=== PATIENT | female | born 1960 | race Caucasian/White ===

== ENCOUNTER 2021-10-30 18:34 | Emergency (ER) | payer OTHER, SELFPAY ==
--- NOTE | 2021-10-30 18:59 | ED.EYEPROB ---
HPI - Eye Problem General Chief complaint: Eye Problems Stated complaint: something in eye Time Seen by Provider: 10/30/21 18:59 Source: patient Mode of arrival: ambulatory Limitations: no limitations History of Present Illness HPI Narrative: this is a 61-year-old female that presents with right eye irritation and sensation of a foreign body that started earlier this morning there is some redness in the conjunctiva with some tearing no visual changes no altered visual acuity patient does not wear contacts. chief complaint: eye pain, eye redness and foreign body Onset (ago): hour(s) Onset description: sudden Duration: constant Location: right eye Eye Symptoms: redness and foreign body sensation Place: home Mechanism: none Severity: mild Related Data Home Medications Medication Instructions Recorded Confirmed albuterol sulfate 90 mcg INHALATION PRN 10/30/21 10/30/21 levothyroxine 200 mcg PO DAILY 10/30/21 10/30/21 Allergies Allergy/AdvReac Type Severity Reaction Status Date / Time No Known Allergies Allergy Verified 10/30/21 19:02 Review of Systems Review of Systems: All systems reviewed & are unremarkable except as noted in HPI and below PMFSH Past Medical History Medical History Patient denies medical problems Exam Const: General: no acute distress Orientation/consciousness: patient oriented x3 HENMT: Head: normal to inspection Other: right conjunctival injection Eyes: Conjunctivae: conjunctival abnormality Direct Ophthalmoscopy: no photophobia Neck: Neck: normal visual inspection and no lymphadenopathy Chest: Chest palpation & inspection: normal inspection of the chest Resp: Effort & Inspection: normal respiratory effort Auscultation: clear to auscultation bilaterally Cardio: Rate: regular rate Rhythm: regular rhythm GI: Auscultation: normal bowel sounds Urinary Catheter: Urinary Catheter: patent and draining Back/Spine/Pelvis: Back: no CVA tenderness Skin: General skin exam: normal color Rashes: no rashes Neuro: General: patient oriented x3 Extrem: General: normal to inspection and no pedal edema Psych: Mental Status: mental status grossly normal Course Course Emergency Course: right eye was irrigated and cotton swab was used to remove any foreign object that the patient felt was in her right eye there is no evidence of any foreign objects the patient does have a red injected right conjunctiva with tearing and foreign body sensation, fluorescein stain was applied and there was no corneal abrasions. Antibiotic eye drop was instilled into the right eye. Critical Care Time Critical Care Time Critical Care Time: No Discharge Plan Discharge Clinical Impression: Bacterial conjunctivitis Patient Disposition: Home, Self-Care Condition: Stable Instructions: Antibiotic Form, Conjunctivitis (ED) Additional Instructions: take medicine as prescribed and follow-up with primary care physician/ public health technologist if symptoms persist or worsen. Prescriptions: New neomycin-polymyxin B-dexameth [Maxitrol] 3.5mg/mL-10,000 unit/mL-0.1 % drops,suspension 1 drp RIGHT EYE Q6H 7 Days Qty: 5 RF: 0 No Action levothyroxine 200 mcg tablet 200 mcg PO DAILY RF: 0 albuterol sulfate 90 mcg/actuation HFA aerosol inhaler 90 mcg INHALATION PRN RF: 0 Follow-up/Referrals: Delphos,Farrah Puente MD [Primary Care Provider] - Time of Disposition: 19:05
[2021-10-30 19:05] VITALS: BP 157/110; PULSE 70; RESP 16; TEMP 35.8; O2SAT 97
[2021-10-30] MEDS: TETRACAINE HCL 0.5% OPHTH SOLN 4 ML BTL 1 DROP (19:09)
[2021-10-30] MEDS: DACRIOSE EYE IRRIGATION 118 ML BOTTLE (19:09)
[2021-10-30] MEDS: FLUORESCEIN SOD 1 MG/STRIP (19:09)
[2021-10-30] MEDS: NEOMYCIN/POLYMYXIN/HYDROCORT 7.5 ML EYE DROPS (*BKC) 1 DROP EACH EYE (19:35)
[2021-10-30 19:42] VITALS: BP 157/101; PULSE 96; RESP 17; TEMP 36.6; O2SAT 98
== END 2021-10-30 19:44 | disposition home or self-care (01) ==
PROVIDERS: Emergency Provider Emergency Medicine; PCP Internal Medicine
DX: H10.89 Other conjunctivitis (principal)
CPT/HCPCS: 99283; A9270

== ENCOUNTER 2023-11-24 01:17 | Emergency (ER) | payer OTHER, SELFPAY ==
--- NOTE | 2023-11-24 01:23 | ED.DIZZY ---
HPI - Dizziness General Chief Complaint: Dizziness Stated Complaint: Dizziness Time Seen by Provider: 11/24/23 01:21 Source: patient Mode of arrival: ambulatory History of Present Illness HPI Narrative: Patient is a 63 year old female with a significant Past medical history presents today with dizziness, nausea, vomiting. Please see present home his signficant she woke up she had disease in vomited and got very nauseous. She states she does have a history of this in the past. She has history of vertigo. She also states that her primary care physician has cut down her Synthroid by about half in the last month. She states that she feels little bit more dizzy in this time frame. She says she is dehydrated though only drink 1 bottle water today. MD elicited complaint: dizziness and vertigo Pertinent past history: BPPV Onset (ago): hour(s) Timing: sudden onset Severity: mild Description: room spinning and lightheadedness History of similar symptoms: Yes Exacerbating factors: nothing Relieving factors: nothing Associated symptoms: denies other symptoms Related Data Home Medications Medication Instructions Recorded Confirmed albuterol sulfate 90 mcg/actuation 90 mcg inhalation PRN 10/30/21 11/24/23 aerosol inhaler levothyroxine 200 mcg tablet 200 mcg PO DAILY 10/30/21 11/24/23 Allergies Allergy/AdvReac Type Severity Reaction Status Date / Time erythromycin base Allergy Unknown Verified 11/24/23 01:33 Penicillins Allergy Unknown Verified 11/24/23 01:33 Review of Systems Review of Systems: All systems reviewed & are unremarkable except as noted in HPI and below Constitutional: Constitutional: Reports as per HPI Eyes: Eyes: Reports no additional eye complaints ENT: Reports system reviewed and no additional complaints, except as documented Cardiovascular: Cardiovascular: Reports no additional cardiovascular complaints Respiratory: Respiratory: Reports no additional respiratory complaints Gastrointestinal: Gastrointestinal: Reports as per HPI, Reports nausea and Reports vomiting Genitourinary: Genitourinary: Reports no additional female genitourinary complaints Musculoskeletal: Musculoskeletal: Reports no additional musculoskeletal complaints Integumentary/Breasts: Skin/Breast: Reports system reviewed and no additional complaints, except as docu Neurologic: Reports system reviewed and no additional complaints, except as documented Psychiatric: Psychiatric: Reports no additional psychiatric complaints Endocrine: Endocrine: Reports no additional endocrine complaints Hematologic/Lymphatic: Hematologic/Lymphatic: Reports no additional hematologic/lymphatic complaints Allergic/Immunologic: Allergic/Immunologic: Reports no additional allergic/immunologic complaints PMFSH Past Medical History Medical History Patient denies medical problems Exam Const: General: healthy appearing Nutritional Appearance: well nourished Orientation/consciousness: patient oriented x3 HENMT: Head: normal to inspection Ears: TM's normal bilaterally Face/Nose/Sinus: Normal external nose present Face and sinus: normal facial exam Mouth: Yes Normal oral and palatal mucosa present Eyes: Conjunctivae: conjunctivae normal Pupils: Equal, round and reactive pupils present Neck: Neck: normal visual inspection Chest: Chest palpation & inspection: normal inspection of the chest Resp: Effort & Inspection: normal respiratory effort Auscultation: clear to auscultation bilaterally Cardio: Rate: regular rate Rhythm: regular rhythm GI: GI Palp: Yes Soft to palpation Back/Spine/Pelvis: Back: no CVA tenderness Skin: General skin exam: normal color Rashes: no rashes Wounds: no wounds Neuro: General: patient oriented x3 Cranial nerves: Yes Nystagmus not present Speech: normal speech Extrem: General: normal to inspection Psych: Mental Status: mental status grossl
[2023-11-24 01:30] VITALS: BP 153/76; PULSE 66; RESP 20; TEMP 37; O2SAT 95
[2023-11-24] MEDS: SODIUM CHLORIDE 0.9% IV 1,000 ML 999 ML IV CONT (01:39)
[2023-11-24] MEDS: MECLIZINE HCL 25 MG TABLET PO (01:39)
[2023-11-24] MEDS: ONDANSETRON INJ 4 MG/2 ML VIAL IV PUSH (01:39)
[2023-11-24 01:57] LABS: Basophils Absolute Auto 0.05 K/mm3 (0.00-0.10); Basophils Percent Auto 0.8 % (0.0-1.0); Eosinophils Absolute Auto 0.19 K/mm3 (0.02-0.50); Hematocrit 39.5 % (35.0-49.0); Hemoglobin 12.8 g/dL (12.0-15.0); Immature Granulocyte Absolute 0.02 K/mm3 (0.00-0.00); Immature Granulocyte Percent A 0.3 % (0.0-0.0); Lymphocytes Absolute Auto 1.09 K/mm3 (1.10-4.50); Lymphocytes Percent Auto 17.4 % (18.0-42.0); Mean Corpuscular HGB Conc 32.4 g/dL (32-36); Mean Corpuscular Hemoglobin 28.4 pg (27.0-31.0); Mean Corpuscular Volume 87.8 fL (78.0-102.0); Mean Platelet Volume 9.1 fl (9.2-11.8); Neutrophils Percent Auto 70.5 % (50.0-70.0); Platelet Count Result 238 K/mm3 (150-420); Red Cell Distribution Width 13.6 % (11.6-14.4); White Blood Count 6.3 K/mm3 (4.8-10.8)
[2023-11-24 01:59] LABS: Bilirubin Urine Negative (Negative); Blood Urine Negative (Negative); Color Urine Light Yellow (Yellow); Glucose Urine UA Negative (Negative); Ketones Urine Negative (Negative); Leukocyte Esterase Ur Negative (Negative); Nitrate Urine Negative (Negative); Protein Urine Negative (Negative); Urobilinogen Urine 0.2 mg/dL (0.2-1.0); pH Urine 7.5 (5.0-8.0)
[2023-11-24 02:03] LABS: Add Urine Microscopic? NO; Appearance Urine Cloudy (Clear)
[2023-11-24 02:12] LABS: Alanine Aminotransferase 19 U/L (14-59); Albumin Level 3.3 g/dL (3.4-5.0); Alkaline Phosphatase 80 U/L (46-116); Anion Gap 11 mmol/L (8-16); Aspartate Amino Transferase 15 U/L (15-37); Bilirubin,Total 0.3 mg/dL (0.00-1.00); Blood Urea Nitrogen 17 mg/dL (7-18); Calcium 8.8 mg/dL (8.5-10.1); Carbon Dioxide 27 mmol/L (21-32); Chloride 107 mmol/L (98-108); Estimated CRCL calculation 79 ml/min; Estimated Glomerular Filt Rate > 60; Glucose 98 mg/dL (70-99); Osmolality Calculated 301 mOsm/kg (285-295); Potassium 3.2 mmol/L (3.5-5.1); Sodium 145 mmol/L (136-145); Total Protein 6.1 g/dL (6.4-8.2)
[2023-11-24] MEDS: POTASSIUM CHLORIDE 20 MEQ ER TABLET 40 MEQ PO (03:23)
[2023-11-24 03:34] VITALS: BP 139/75; PULSE 85; RESP 20; TEMP 37.1; O2SAT 98
== END 2023-11-24 03:34 | disposition home or self-care (01) ==
PROVIDERS: Emergency Provider Family Medicine; PCP Internal Medicine
DX: H81.10 Benign paroxysmal vertigo, unspecified ear (principal); R11.2 Nausea with vomiting, unspecified
CPT/HCPCS: 36415; 80053; 81003; 85025; 96361; 96374; 99284; A9270; J2405; J7030

== ENCOUNTER 2025-01-12 18:25 | Emergency (ER) | payer OTHER, SELFPAY ==
[2025-01-12 18:26] VITALS: BP 149/88; PULSE 78; RESP 16; TEMP 36.6; O2SAT 98
--- NOTE | 2025-01-12 18:27 | ED.UPPEXIN ---
HPI - Extremity Injury (Upper) General Chief Complaint: Extremity Injury, Upper Stated Complaint: left hand pain Time Seen by Provider: 01/12/25 18:26 Source: patient Mode of arrival: ambulatory Limitations: no limitations History of Present Illness HPI narrative: Patient is a 64-year-old female with a left hand irritation and pain with redness for the past day. She had no injury. No history of gout. Many allergies to medications. MD complaint: injury to: left and hand Onset (ago): day(s) ( One) Other injuries: none Place: home Severity: moderate Severity scale (1-10): 4 Relieving factors: none Exacerbating factors: movement of extremity Context: other ( no injury) Associated symptoms: denies other symptoms Treatments prior to arrival: other ( none) Related Data Home Medications ?Medication ?Instructions ?Recorded ?Confirmed ?Last Taken ?Type albuterol sulfate 90 mcg/actuation 90 mcg inhalation PRN 10/30/21 11/24/23 Unknown History aerosol inhaler levothyroxine 200 mcg tablet 200 mcg PO DAILY 10/30/21 11/24/23 Unknown History Allergies Allergy/AdvReac Type Severity Reaction Status Date / Time Cephalosporins Allergy Mild Unknown Verified 01/12/25 18:30 ibuprofen (From Motrin) Allergy Mild Unknown Verified 01/12/25 18:30 lamotrigine Allergy Mild Unknown Verified 01/12/25 18:30 methylprednisolone Allergy Mild Unknown Verified 01/12/25 18:30 nitrofurantoin (From Allergy Mild Unknown Verified 01/12/25 18:30 Macrobid) pseudoephedrine Allergy Mild Unknown Verified 01/12/25 18:30 Quinolones Allergy Mild Unknown Verified 01/12/25 18:30 Sulfa (Sulfonamide Allergy Mild Unknown Verified 01/12/25 18:30 Antibiotics) erythromycin base Allergy Unknown Verified 01/12/25 18:30 Penicillins Allergy Unknown Verified 01/12/25 18:30 Review of Systems Review of Systems: All systems reviewed & are unremarkable except as noted in HPI and below Constitutional: Constitutional: Reports no additional constitutional complaints Eyes: Eyes: Reports no additional eye complaints ENT: Reports system reviewed and no additional complaints, except as documented Cardiovascular: Cardiovascular: Reports no additional cardiovascular complaints Respiratory: Respiratory: Reports no additional respiratory complaints Gastrointestinal: Gastrointestinal: Reports no additional gastrointestinal complaints Genitourinary: Genitourinary: Reports no additional female genitourinary complaints Musculoskeletal: Musculoskeletal: Reports no additional musculoskeletal complaints Integumentary/Breasts: Skin/Breast: Reports system reviewed and no additional complaints, except as docu Neurologic: Reports system reviewed and no additional complaints, except as documented Psychiatric: Psychiatric: Reports no additional psychiatric complaints Endocrine: Endocrine: Reports no additional endocrine complaints Hematologic/Lymphatic: Hematologic/Lymphatic: Reports no additional hematologic/lymphatic complaints Allergic/Immunologic: Allergic/Immunologic: Reports no additional allergic/immunologic complaints PMFSH Past Medical History Medical History Patient denies medical problems Exam Const: General: healthy appearing Nutritional Appearance: well nourished Orientation/consciousness: patient oriented x3 HENMT: Head: normal to inspection Ears: external ears normal Face/Nose/Sinus: Normal external nose present Eyes: Conjunctivae: conjunctivae normal Pupils: Equal, round and reactive pupils present EOM: EOMs intact bilaterally Neck: Neck: normal visual inspection Chest: Chest palpation & inspection: normal inspection of the chest Resp: Effort & Inspection: normal respiratory effort and not labored Auscultation: clear to auscultation bilaterally and no crackles Cardio: Rate: regular rate Rhythm: regular rhythm Heart sounds: no murmurs GI: Inspection: non-distended GI Palp: Yes Soft to palpation and No Tenderness to palpation present (GI) Auscultation: normal bowel sounds : General: Yes bladder normal to palpation Back/Spine/Pelvis: Back: no CVA tenderness Skin: General skin exam: normal color Rashes: rash noted Wounds: no wounds Other: left hand extensor surface has erythema and tenderness throughout the entire hand but more so on the pointer finger MCP joint; this is not a circumferential erythema Neuro: General: patient oriented x3 Cranial nerves: Yes Nystagmus not present Speech: normal speech Extrem: General: abnormal to inspection Other: see skin exam Psych: Mental Status: mental status grossly normal Affect: normal affect Attitude: cooperative MDM - Extremity Injury (Upper) MDM Narrative Medical decision making narrative: patient is a 64-year-old female with left hand extensor surface erythema with pain which appears to be gout and/or cellulitis. Will treat both accordingly. No injury so no x-ray needed at this time. Discharge Plan Discharge Clinical Impression: Cellulitis Qualifiers: Site of cellulitis: extremity Site of cellulitis of extremity: upper extremity Laterality: left Qualified Code(s): L03.114 - Cellulitis of left upper limb Gout Qualifiers: Gout site: hand Gout etiology: unspecified cause Chronicity: acute Laterality: left Qualified Code(s): M10.9 - Gout, unspecified Patient Disposition: Home Condition: Stable Instructions: Antibiotic Form, Cellulitis (ED), Gout (ED) Patient Language: Moldovan Prescriptions: New colchicine 0.6 mg capsule 0.6 mg PO DAILY 7 Days Qty: 7 0RF clindamycin HCl [Cleocin HCl] 300 mg capsule 300 mg PO TID 7 Days Qty: 21 0RF No Action levothyroxine 200 mcg tablet 200 mcg PO DAILY albuterol sulfate 90 mcg/actuation HFA aerosol inhaler 90 mcg INHALATION PRN meclizine 25 mg tablet 25 mg PO BID PRN (Reason: dizziness) Qty: 20 0RF ondansetron 4 mg tablet,disintegrating 4 mg PO Q8H PRN (Reason: nausea and vomiting) Qty: 20 0RF Follow-up/Referrals: UNKNOWN,DOCTOR [Primary Care Provider] - Time of Disposition: 18:48
--- OUTSIDE RECORDS SUMMARY | 2025-01-12 18:27 | XMS_ITS ---
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 Pain, swelling, redness and abrasions to anterior knee. Duration: today TECHNIQUE: 3 radiographic view(s) of the left knee . COMPARISON: 01/18/2020 FINDINGS: BONES/JOINTS: There is no acute fracture, malalignment or osseous abnormality. The joint spaces are normal. The bones are somewhat osteopenic. SOFT TISSUES: Within normal limits. IMPRESSION: No acute osseous abnormality. THIS IS AN ELECTRONICALLY VERIFIED FINAL REPORT 01/16/2024 7:13 PM - Electronically signed by Heri Pillai M.D. KH: PARTHA Report ID: [id number] Reading Location: [place] [id number] Social History Type Status Start Date End Date Code Code Syst em Smoking History Current every day smoker [id number] SNOMED CT Smoking History Unknown if ever smoked [id number] Sex Female Hospital Discharge Instructions Should you have any questions prior to discharge, please contact a member of your healthcare team. If you have left the hospital and have any questions, please contact your primary care physician. Reason For Referral No Data Found Plan of Treatment MRI Abdomen WWO Contrast ([id number]) 2024 Encounters Encounter Diagnosis Start Date Code Code Sys tem Contusion of left knee, initial encounter 01/16/2024 SNOMED-CT Personal Care Team Section Performer Name Performer Role Active Date Inactive Da yash PHAN Imaging Narrative Notes
--- OUTSIDE RECORDS SUMMARY | 2025-01-12 18:27 | XMS_ITS | Data Portability ---
Author Organization [facility], [address] [facility] Neurology ([place]) Address [address] [place] [address] Care Team Providers Care Forms Builder Name Role Phone FARRAH PHAN Primary Care Provider [phone] Assessment Encounter Date Assessment Date Assessment LastModified by Organization Details LastModified Time 04/13/2024 04/13/2024 1. She has a his tory of hypothyroidism and poor compliance with medication. We will check her thyroid levels today to see if this is contributing to her symptoms of insomnia and tremors. 2. She has vitamin D deficiency. Will check her level today. This could contribute to her fatigue. She does not go outside or sit in the sun at all. 3. Rash. I think this might be just due to very dry skin and lack of bathing. I recommend that she take a shower on her regular basis and then use an oil or Vaseline on her skin after she gets out of the bathtub. She is going to try this and helps. 4. Very fine tremors. Again we will check labs to see if there is any electrolyte abnormalities or thyroid abnormality is contributing to this 5. She has been a lifelong smoker we will make sure that she has a CTs every year for lung cancer screening. When I talked to her about this, she declines this. I have asked her to think about it before she absolutely says no. She will return in 3 months for follow-up. She will be due for laboratory follow-up and at the end of April. She agrees with this plan. 30 minutes [email or web address] Not available 04/15/2024 21:15:03 06/01/2024 06/01/2024 Discussed otitis media and bronchitis with the patient. She has done well with Z-Steve in the past. We talked about using some steroids for the chest. She has intolerance to methylprednisolone as it made her dizzy. She has been on prednisone before but does not remember if it caused any problems. With her using the inhaler and only getting short-term benefit I think steroid would be helpful. We could start a low-dose and see if she tolerates the medication. If it causes dizziness she can discontinue it immediately. She stay away from the jgqi-gwk-cvxkbrc oral cold medications. If she wants to use something help with the congestion in the sinus that she could use topical decongestant such as Afrin or Jeb-Synephrine. She can also use saline nasal spray which is a mild decongestant. If she does not see improvement over the next 5 days she should be reevaluated. We discussed worsening of symptoms and need to follow-up immediately if that occurs. Discussed with the patient they will be notified of results by patient portal or by mail. They will be notified of results by phone, only if results require immediate attention. Patient verbalizes understanding and agreement with the treatment plan. Patient will continue to follow-up for acute health issues and routine medication checks. [email or web address] Not available 06/01/2024 15:58:29 07/13/2024 07/13/2024 I ordered CBC ur ic acid and vitamin B12 for evaluation of right foot pain. We discussed that if the pain continues and this does not give us answer the neck step would be doing an x-ray on the foot. We will let her know the results of the test when it becomes available. Going to recheck her thyroid level today. I ordered TSH and that should be available next couple days. We will let her know that result and if any further changes in her medication are necessary. If she has worsening of symptoms I would like her to get back in immediately. If were not open she should go to the emergency room. Discussed with the patient they will be notified of results by patient portal or by mail. They will be notified of results by phone, only if results require immediate attention. Patient verbalizes understanding and agreement with the treatment plan. Patient will continue to follow-up for acute health issues and routine medication checks. [email or web address] Not available 07/13/2024 16:36:33 09/21/2024 09/21/2024 1. COPD and ongo ing tobacco use. We talked about smoking cessation. She has already cut back quite a bit. She is only smoking outside. I explained that this would affect her sinuses her ears her cough and she understands. 2. Her essential tremor is not evident today. She says she has been taking her thyroid medicine and I think this is a contributing factor. 3. Hypothyroidism. She has been taking her medication appropriately. It is evident and that her skin looks better, she has a less than doughy phase, and her weight is maintained. Will continue to monitor. 4. She is due for Pap smear. She wants to postpone it until warmer weather. She has 3 layers of clothing on today because of the cold. 5. She has not had a colonoscopy. We will send a Cologuard test to her home to see if she will do this. I will see her back in 6 months at which time she will be due for full physical laboratory testing. She declines immunizations. We have tried to get her on Fosamax for her osteoporosis but she is not willing to do that. Will talk with her again in the summer. She knows to call with any concerns. Total time 30 minutes. She agrees with this plan [email or web address] Not available 09/22/2024 11:40:10 11/25/2024 11/25/2024 1. Blood pressur e was elevated. I recommend that she monitor her blood pressure by getting it at home monitor. If it stays elevated over 140/90 consistently she should make follow-up appointment. If she is unable to followed at home she should make follow-up appointment for a couple weeks to make sure that the numbers come down after her illness. 2. For the sinobronchitis I placed her on Z-Steve. She had multiple allergies but has no issues with Z-Steve. We discussed risk first benefits and possible side effects medication. Also sent in refill of fluticasone for her. I will take the Astelin off of her medication list. 3. Ordered x-ray on her foot. She has MRI scheduled for Saturday for a follow-up. She can get the x-ray done at the same time. If the foot pain is gone she does not need to do the x-ray. If it gets worse sooner she can go over and get the x-ray done sooner. In the meantime I did recommend the use of the ibuprofen as necessary. We talked about stretching and using ice massage on the area. We talked about this being possible heel spur or plantar fasciitis. She should make sure to wear shoes at all times besides being in bed. [email or web address] Not available 11/25/2024 10:16:20 Plan of Treatment Reminders Order Date Submit Date Provider Last Modified By Organization Details Last Modified Time Details Appointments Establis [facility] Patient 30.EST 2024 09:00A M Dr. Farrah Coley Not available Not available Not available Lab CBC w/ auto diff 2023 [facility] - [facility], [address] [place] [address], [id number], 07/14/2024 18:57:28 vitamin B12, serum 2023 024 [facility], [address] [place] [address], [id number], 07/14/2024 19:24:53 uric acid, serum or plasma 2023 024 [facility], [address] [place] [address], [id number], 07/14/2024 19:08:38 TSH, ultra-se nsitive, serum 2023 024 [facility], [address] [place] [address], [id number], 07/14/2024 19:22:43 vitamin D, 25-hydro xy, total, serum 2023 024 [facility], [address] [place] [address], [id number], 04/27/2024 18:47:47 TSH, serum or plasma 2023 024 [facility], [address] [place] [address], [id number], 04/27/2024 18:47:45 Referral None recorded . Procedures None recorded . Surgeries None recorded . Imaging XR, foot, 3 or more view 2024 025 [email or web address] [facility] - Radiology Scheduling, [address] [place], [address], 11/30/2024 15:17:15 Medication Orders azithrom ycin 250 mg tablet 2024 [facility] [address], [facility] [place], [address], 11/25/2024 09:58:40 fluticas one propiona te 50 mcg/actu ation nasal spray,montano spension 2024 025 [facility] [address], [facility] [place], [address], 11/25/2024 09:58:41 predniso ne 20 mg tablet 2023 024 [facility] [address], [facility] [place], [address], 07/13/2024 16:32:38 azithrom ycin 250 mg tablet 2023 024 [facility] [address], [facility] [place], [address], 07/13/2024 16:32:30 Patient TargetsNo targets recorded. Patient InstructionsNo instructions recorded. Reason for Referral None Reported. Results Created Date Observation Date Name Description Value Unit Range Abnormal Flag Note LastModifiedBy Organization Detail LastModifiedTime 03/17/20 24 03/17/2024 TSH, ultra -sens itive , serum TSH3 0.129 uIU/m L .340-5 .600 low Not Available [facility] [address] [place] [address], [id number], 03/17/2024 18:54:47 04/27/20 24 04/27/2024 TSH, serum or plasm a TSH; reflex to free T4 Not Available [facility] [address] [place] [address], [id number], 04/27/2024 18:47:45 04/27/20 24 04/27/2024 TSH, serum or plasm a TSH3 0.204 uIU/m L .340-5 .600 low FT4 refle x indic ated, resul ts to follo w. Not Available [facility] [address] [place] [address], [id number], 04/27/2024 18:47:45 04/27/20 24 04/27/2024 vitam in D, 25-hy droxy , total , serum vitamin D 25-hydroxy totl 36.0 NG/mL 30.0-8 0.0 Less than 20 ng/mL Defic iency 20-29 ng/mL Insuf ficie ncy 30-80 ng/mL Optim al Great er than 80 ng/mL Possi ble toxic ity Not Available [facility] [address] [place] [address], [id number], 04/27/2024 18:47:47 04/27/20 24 04/27/2024 T4, free, serum free T4 1.55 NG/dL 0.58-1 .64 Speci mens that conta in high level s of bioti n may cause false ly high Free T4 resul ts. Not Available [facility] [address] [place] [address], [id number], 04/27/2024 19:07:02 07/13/20 24 07/14/2024 CBC w/ auto diff CBC with differential Not Available [facility] [address] [place] [address], [id number], 07/14/2024 18:57:28 07/13/20 24 07/14/2024 CBC w/ auto diff WBC 6.1 K/uL 3.8-11 .2 Not Available [facility] [address] [place] [address], [id number], 07/14/2024 18:57:28 07/13/20 24 07/14/2024 CBC w/ auto diff RBC 4.84 M/uL 3.92-5 .10 Not Available [facility] [address] [place] [address], [id number], 07/14/2024 18:57:28 07/13/20 24 07/14/2024 CBC w/ auto diff HGB 14.3 g/dL 11.8-1 5.3 Not Available [facility] [address] [place] [address], [id number], 07/14/2024 18:57:28 07/13/20 24 07/14/2024 CBC w/ auto diff HCT 42.9 % 36.5-4 4.8 Not Available [facility] [address] [place] [address], 67[address], 07/14/2024 18:57:28 07/13/20 24 07/14/2024 CBC w/ auto diff MCV 88.6 fL 80.0-9 9.0 Not Available [facility] [address] [place] [address], [id number], 07/14/2024 18:57:28 07/13/20 24 07/14/2024 CBC w/ auto diff MCH 29.5 pg 25.5-3 3.6 Not Available [facility] [address] [place] [address], [id number], 07/14/2024 18:57:28 07/13/20 24 07/14/2024 CBC w/ auto diff MCHC 33.3 g/dL 32.0-3 6.0 Not Available [facility] [address] [place] [address], [id number], 07/14/2024 18:57:28 07/13/2007/14/2024 CBC w/ auto diff RDW-SD 46.6 fL 35.1 - 46.3 high Not Available [facility] [address] [place] [address], [id number], 07/14/2024 18:57:28 07/13/20 24 07/14/2024 CBC w/ auto diff plt 295 K/uL 130-40 0 Not Available [facility] [address] [place] [address], [id number], 07/14/2024 18:57:28 07/13/20 24 07/14/2024 CBC w/ auto diff MPV 9.7 fL 9.3-12 .8 Not Available [facility] [address] [place] [address], [id number], 07/14/2024 18:57:28 07/13/20 24 07/14/2024 CBC w/ auto diff tracee% 63.1 % not estab Not Available [facility] [address] [place] [address], 6[address], 07/14/2024 18:57:28 07/13/20 24 07/14/2024 CBC w/ auto diff lym% 25.2 % not estab Not Available [facility] [address] [place] [address], [id number], 07/14/2024 18:57:28 07/13/20 24 07/14/2024 CBC w/ auto diff mono% 8.7 % not estab Not Available [facility] [address] [place] [address], [id number], 07/14/2024 18:57:28 07/13/20 24 07/14/2024 CBC w/ auto diff eos% 1.6 % not estab Not Available [facility] [address] [place] [address], 639[address], 07/14/2024 18:57:28 07/13/20 24 07/14/2024 CBC w/ auto diff baso% 1.2 % not estab Not Available [facility] [address] [place] [address], [id number], 07/14/2024 18:57:28 07/13/20 24 07/14/2024 CBC w/ auto diff abs tracee 3.8 K/uL 1.8-7. 5 Not Available [facility] [address] [place] [address], [id number], 07/14/2024 18:57:28 07/13/20 24 07/14/2024 CBC w/ auto diff abs lym 1.5 K/uL 1.1-3. 3 Not Available [facility] [address] [place] [address], 62[address], 07/14/2024 18:57:28 07/13/20 24 07/14/2024 CBC w/ auto diff abs mono 0.5 K/uL 0.1-1. 0 Not Available [facility] [address] [place] [address], 586[address], 07/14/2024 18:57:28 07/13/20 24 07/14/2024 CBC w/ auto diff abs eos 0.1 K/uL 0.0-0. 7 Not Available [facility] [address] [place] [address], 10585, 07/14/2024 18:57:28 07/13/20 24 07/14/2024 CBC w/ auto diff abs baso 0.1 K/uL 0.0-0. 2 Not Available [facility] [address] [place] [address], 677[address], 07/14/2024 18:57:28 07/13/20 24 07/14/2024 CBC w/ auto diff imm. gran % 0.2 % 0-5 Not Available [facility] [address] [place] [address], 44[address], 07/14/2024 18:57:28 07/13/20 24 07/14/2024 CBC w/ auto diff NRBC % 0.0 % 0.0-0. 2 Not Available [facility] [address] [place] [address], 033[address], 07/14/2024 18:57:28 07/13/20 24 07/14/2024 uric acid, serum or plasm a uric acid- Not Available [facility] [address] [place] [address], 07992, 07/14/2024 19:08:38 07/13/20 24 07/14/2024 uric acid, serum or plasm a uric acid 3.9 mg/dL 2.3-6. 6 Not Available [facility] [address] [place] [address], 27559, 07/14/2024 19:08:38 07/13/20 24 07/14/2024 TSH, ultra -sens itive , serum TSH3 0.362 uIU/m L .340-5 .600 Not Available [facility] [address] [place] [address], 24697, 07/14/2024 19:22:43 07/13/20 24 07/14/2024 vitam in B12, serum vitamin B12 235 pg/mL 180-91 4 <145 pg/mL = Defic ient 145 - 180 pg/mL = Inter media te Not Available [facility] [address] [place] [address], [id number], 07/14/2024 19:24:53 04/17/20 24 09/24/2022 imagi ng/di agnos tic resul t No observ ation record ed. [email or web address] Not Available 04/17/2024 02:25:23 04/17/20 24 01/01/2023 imagi ng/di agnos tic resul t No observ ation record ed. Not Available 04/17/2024 02:25:25 04/17/20 24 01/17/2023 imagi ng/di agnos tic resul t No observ ation record ed. Not Available 04/17/2024 02:25:30 04/17/20 24 01/22/2023 imagi ng/di agnos tic resul t No observ ation record ed. Not Available 04/17/2024 02:25:31 06/30/20 24 10/01/2023 imagi ng/di agnos tic resul t No observ ation record ed. [email or web address] Not Available 08:17:49 06/30/20 24 01/16/2024 imagi ng/di agnos tic resul t No observ ation record ed. [email or web address] Not Available 08:17:56 06/30/20 24 08/05/2023 imagi ng/di agnos tic resul t No observ ation record ed. [email or web address] Not Available 08:18:01 12/01/1911/30/2024 XR, foot, 3 or more view No observ ation record ed. [email or web address] [facility] [place], [address], 11/30/2024 15:18:17 12/03/1911/30/2024 MRI, pancr eas, w/wo contr ast No observ ation record ed. [facility] [place], [address], 12/02/2024 15:49:56 Result Notes None recorded. Problems Name Problem SNOMED Code Status Onset Date Resolution Date Notes Provider Name and Address Organization Details Recorded Time Vitamin D deficienc y 24161062 Active 2023 Farrah Coley MD [address] [place] [address], [address], [facility] 4 16:22:51 Essential tremor 494157217 Active 2023 Farrah Coley MD [address] [place] [address], [address], [facility] 4 21:15:33 Pain in right heel 119711973469 9105 Active 2024 García Lim PA-C [address] [place] [address], [address], [facility] 5 09:54:37 Chronic sinusitis 47547063 Active 2024 García Lim PA-C [address] [place] [address], [address], [facility] 5 09:55:00 Hypothyro idism 53911154 Active 2023 Alisia Khan null, [facility] 4 17:08:24 Cough 85224012 Active 2023 Vivien Javed null, [facility] 4 16:05:00 Chronic obstructi ve pulmonary disease 86149044 Active 2023 García Lim PA-C [address] [place] [address], [address], [facility] 4 17:10:57 Smokes tobacco daily 109471725 Active 2023 García Lim PA-C [address] [place] [address], [address], [facility] 4 17:11:09 Gastroeso phageal reflux disease 036062736 Active 2023 García Lim PA-C [address] [place] [address], [address], [facility] 4 17:11:19 Hyperchol esterolem ia 04792669 Active 2023 García Lim PA-C [address] [place] [address], [address], [facility] 4 17:11:27 Hypertens amada disorder 98328663 Active 2023 García Lim PA-C [address] [place] [address], [address], [facility] 4 17:11:36 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 116460189166 106 Active 2023 DIYA TafoyaC [address] [place] [address], [address], [facility] 4 17:12:23 Heart murmur 93039678 Active 2023 García Lim PA-C [address] [place] [address], [address], [facility] 4 17:12:30 Osteoporo sis 45850945 Active 2023 García Lim PA-C [address] [place] [address], [address], [facility] 17:12:45 Cobalamin deficienc y 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 Procedures Surgical History Date Name Laterality Status Provider Name and Address Organization Details Recorded Time Cholecystectomy completed Kali Lim PA-C [address] [place] [address], [address], [facility] 03/02/2024 17:13:32 ligation of fallopian tube completed García Lim PA-C [address] [place] [address], [address], [facility] 03/02/2024 17:13:43 Removal of gallbladder completed Not Available Health Note 05/31/2024 08:21:20 Removal of tonsils completed Not Available Healt h Note 05/31/2024 08:21:20 Imaging Results Imaging Date Name Status LastModified by [facility]3] Details LastModified Time 09/24/2022 imaging/diagn ostic result completed Information not available 04/17/2024 02:25:23 01/01/2023 imaging/diagn ostic result completed Information not available 04/17/2024 02:25:25 01/17/2023 imaging/diagn ostic result completed Information not available 04/17/2024 02:25:30 01/22/2023 imaging/diagn ostic result completed Information not available 04/17/2024 02:25:31 10/01/2023 imaging/diagn ostic result completed Information not available 06/30/2024 08:17:49 01/16/2024 imaging/diagn ostic result completed Information not available 06/30/2024 08:17:56 08/05/2023 imaging/diagn ostic result completed Information not available 06/30/2024 08:18:01 11/30/2024 XR, foot, 3 or more view completed [email or web address] [place] [address] [place], [address], 11/30/2024 15:18:17 11/30/2024 MRI, pancreas, w/wo contrast completed [facility][note 3] [place], [address], 12/02/2024 15:49:56 Procedure Notes None recorded. Medical Equipment None Reported. Allergies Allergen ID Allergen Name Allergen Category Reaction Reaction Severity Criticality Documentation Date Start Date Code Code System Note Provider Name and Address Organization Details Recorded Time 3465748 methylpre dnisolone sodium succinate medicatio n lighthead edness Not available Not available 10/02/20232016 9 RxNorm React ion: Dizzi ness; Other : light heade d; Not Available [facility] 04:35:41 058718 Motrin medicatio n nausea Not available Not available 09/30/20232011 8 RxNorm React ion: Nause a; Not Available [facility] 21:48:16 861486 chlorphen iramine / pseudoeph edrine medicatio n nausea Not available Not available 09/30/20232011 5 RxNorm React ion: Nause a; Not Available [facility] 21:48:16 449649 Medicinal product containin g cephalosp albina and acting as antibacte rial agent (product) medicatio n nausea Not available Not available 09/30/20232011 36900 9009 SNOMED React ion: Nause a; Not Available [facility] 4 21:48:16 185428 lamotrigi ne medicatio n nausea Not available Not available 09/30/20232011 43707 RxNorm React ion: Nause a; Not Available [facility] 4 21:48:16 502896 Macrobid medicatio n nausea Not available Not available 09/30/20232011 12874 1 RxNorm React ion: Nause a; Not Available [facility] 4 21:48:16 990525 Product containin g penicilli n (product) medicatio n nausea Not available Not available 09/30/20232011 21231 8001 SNOMED React ion: Nause a; Not Available [facility] 4 21:48:17 893860 Substance with sulfonami de structure and antibacte rial mechanism of action (substanc e) medicatio n nausea Not available Not available 09/30/20232011 88076 8003 SNOMED React ion: Nause a; Not Available [facility] 21:48:17 354173 Medicinal product containin g quinolone and acting as antibacte rial agent (product) medicatio n nausea Not available Not available 09/30/20232011 07882 008 SNOMED React ion: Nause a; Not Available [facility] 4 21:48:17 Medications Name Sig Start Date Stop Date Status Note LastModified by Organization Details LastModified Time levothyroxi ne 175 mcg tablet TAKE 1 TABLET BY MOUTH ONCE DAILY 03/02 completed Not Available Not Available Not Available azithromyci n 250 mg tablet TAKE 2 TABLETS (500 MG) BY ORAL ROUTE ONCE DAILY FOR 1 DAY THEN 1 TABLET (250 MG) BY ORAL ROUTE ONCE DAILY FOR 4 DAYS 2024 active Not Available Not Available Not Avai lable tizanidine 4 mg tablet TAKE 1 TABLET BY MOUTH THREE TIMES DAILY 03/02 completed Not Available Not Available Not Available prednisone 20 mg tablet Take 1 tablet every day by oral route. 07/13 completed Not Available Not Available Not Available alendronate 70 mg tablet TAKE ONE TABLET BY MOUTH ONCE WEEKLY ON AN EMPTY STOMACH ONE HOUR BEFORE BREAKFAST . 09/21 completed Not Available Not Available Not Available levothyroxi ne 25 mcg tablet TAKE 1 TABLET BY MOUTH IN THE MORNING BEFORE BREAKFAST ON AN EMPTY STOMACH 03/02 completed Not Available Not Available Not Available levothyroxi ne 100 mcg tablet Take 1 tablet every day by oral route for 90 days. 2024 active Not Available Not Available Not Avai lable meclizine 25 mg tablet 03/02 completed Not Available Not Available Not Available levothyroxi ne 50 mcg tablet TAKE 1 TABLET BY MOUTH ONCE DAILY ALONG WITH 200 MCG TO TOTAL 250 MCG 03/02 completed Not Available Not Available Not Available pantoprazol e 40 mg tablet,cathi yed release TAKE 1 TABLET BY MOUTH ONCE DAILY active Not Available Not Available No t Available levothyroxi ne 125 mcg tablet 03/02 completed Not Available Not Available Not Available levothyroxi ne 200 mcg tablet TAKE 1 TABLET BY MOUTH ONCE DAILY 03/02 completed Not Available Not Available Not Available ergocalcife rol (vitamin D2) 1,250 mcg (50,000 unit) capsule 09/21 completed Not Available Not Available Not Available azelastine 137 mcg (0.1 %) nasal spray USE 1 TO 2 SPRAY(S) IN EACH NOSTRIL TWICE DAILY NEEDED 11/25 completed Not Available Not Available Not Available albuterol sulfate HFA 90 mcg/actuati on aerosol inhaler INHALE 1 TO 2 PUFFS BY MOUTH EVERY 4 TO 6 HOURS NEEDED active Not Available Not Available No t Available ondansetron 4 mg disintegrat ing tablet 03/02 completed Not Available Not Available Not Available fluticasone propionate 50 mcg/actuati on nasal spray,suspe nsion 1 spray in each nostril twice daily 2024 active Not Available Not Available Not Avai lable doxycycline hyclate 100 mg tablet 03/02 completed Not Available Not Available Not Available naproxen 500 mg tablet TAKE 1 TABLET BY MOUTH TWICE DAILY FOR 10 DAYS 03/02 completed Not Available Not Available Not Available levothyroxi ne 112 mcg tablet 03/02 completed Not Available Not Available Not Available Atrovent HFA 17 mcg/actuati on aerosol inhaler INHALE 2 PUFFS BY MOUTH TWICE DAILY active Not Available Not Available No t Available Vitamin D3 50 mcg (2,000 unit) tablet Take 1 tablet every day by oral route. active Not Available Not Available No t Available Paxlovid 300 mg (150 mg x 2)-100 mg tablets in a dose pack TAKE 3 TABLETS TOGETHER (TWO 150 MG NIRMATREL VIR TABLETS AND ONE 100 MG RITONAVIR TABLET) BY MOUTH TWICE DAILY FOR 5 DAYS. 03/02 completed Not Available Not Available Not Available Vitals Date Recorded Body height Body mass index (BMI) Body weight Body temperature Heart rate Oxygen saturation Oxygen saturation in Arterial blood by Pulse oximetry Systolic blood pressure Diastolic blood pressure Provider Name and Address Organization Details Last Updated DateTime 4 170.18 cm 22.4 kg/m2 60168.7 1 g 97.3 [degF] 62 /min 98 % 98 % 138 mm[Hg] 80 mm[Hg] Caitlin Valle [facility] 4 15:57:41 Date Recorded Body height Body mass index (BMI) Body weight Body temperature Heart rate Oxygen saturation Oxygen saturation in Arterial blood by Pulse oximetry Systolic blood pressure Diastolic blood pressure Provider Name and Address Organization Details Last Updated DateTime 4 170.18 cm 22.5 kg/m2 80302.8 6 g 97.3 [degF] 70 /min 97 % 97 % 138 mm[Hg] 72 mm[Hg] [facility] 4 15:02:30 Date Recorded Body height Body mass index (BMI) Body weight Body temperature Heart rate Oxygen saturation Oxygen saturation in Arterial blood by Pulse oximetry Systolic blood pressure Diastolic blood pressure Provider Name and Address Organization Details Last Updated DateTime 4 170.18 cm 22.6 kg/m2 23026.4 6 g 96.8 [degF] 70 /min 98 % 98 % 118 mm[Hg] 66 mm[Hg] [facility] 4 16:02:54 Date Recorded Body height Body mass index (BMI) Body weight Body temperature Heart rate Oxygen saturation Oxygen saturation in Arterial blood by Pulse oximetry Systolic blood pressure Diastolic blood pressure Provider Name and Address Organization Details Last Updated DateTime 5 170.18 cm 22.4 kg/m2 72316.7 1 g 96.9 [degF] 60 /min 95 % 95 % 146 mm[Hg] 80 mm[Hg] Caitlin Valle [facility] 5 10:55:03 Date Recorded Body height Body mass index (BMI) Body weight Body temperature Heart rate Oxygen saturation Oxygen saturation in Arterial blood by Pulse oximetry Systolic blood pressure Diastolic blood pressure Provider Name and Address Organization Details Last Updated DateTime 5 170.18 cm 22.9 kg/m2 89055.4 9 g 97.1 [degF] 62 /min 98 % 98 % 144 mm[Hg] 98 mm[Hg] Dulce Merritt [facility] 5 09:29:36 Social History Question Answer Notes LastModified by Woldme Details LastModified Time Tobacco Smoking Status Current Some Day Smoker Not Available Health Note 05/31/2024 08:21:21 Do You Have An Advance Directive? No [email or web address] Information not available 05/31/2024 What Is Your Level Of Caffeine Consumption? Occasional [email or web address] Information not available 05/31/2024 How Many Times Per Week Do You Exercise? 1-2 Times Per Week [email or web address] Information not available 05/31/2024 How Many Packs Per Day (PPD)? 1 Pack Per Day [email or web address] Information not available 05/31/2024 How Long Have You Smoked? 25 [email or web address] Information not available 05/31/2024 Do You Have A Medical Power Of Yard Coupler? No [email or web address] Information not available 05/31/2024 What Was The Date Of Your Most Recent Tobacco Screening? 06/01/2024 [email or web address] Information not available 05/31/2024 What Is Your Relationship Status? [email or web address] Information not available 05/31/2024 Sex: Unknown Functional Status Question Answer Note LastModified by Woldme Details LastModified Time Do you use any illicit or recreational drugs? No [email or web address] Information not available 05/31/2024 What is your level of alcohol consumption? None [email or web address] Information not available 05/31/2024 Are you currently employed? No [email or web address] Information not available 05/31/2024 What is your occupation? None [email or web address] Information not available 05/31/2024 What is your exercise level? Occasional [email or web address] Information not available 05/31/2024 Mental Status None recorded. Family History Relationship Description Onset Age of this Age Resolved Age Notes LastModified by Organization Details LastModified Time Father Heart disease [email or web address] Not available 2023 12:40:37 Father Cerebral artery occlusion [email or web address] Not available 2023 17:15:04 Father Cerebellar infarction [email or web address] Not available 03/02 17:15:17 Father Coronary arterioscler osis [email or web address] Not available 2023 17:15:32 Father Glaucoma [email or web address] Not availabl e 03/02/2024 17:15:47 Father Attention deficit hyperactivit y disorder [email or web address] Not available 05/31 08:21:20 Father Alzheimer's disease [email or web address] Not available 2023 08:21:20 Father Hypertensive disorder [email or web address] Not available 2023 08:21:20 Father Hypercholest erolemia [email or web address] Not available 2023 08:21:20 Father Cerebrovascu lar accident [email or web address] Not available 08:21:20 Mother Heart disease [email or web address] Not available 2023 12:40:37 Mother Alzheimer's disease [email or web address] Not available 2023 17:14:09 Mother Cerebral artery occlusion [email or web address] Not available 2023 17:15:04 Mother Cerebellar infarction [email or web address] Not available 03/02 17:15:17 Mother Coronary arterioscler osis [email or web address] Not available 2023 17:15:32 Mother Glaucoma csprinkel Not availabl e 03/02/2024 17:15:47 Mother Osteoarthrit is csprinkel Not available 2023 17:15:55 Mother Attention deficit hyperactivit y disorder [email or web address] Not available 05/31 08:21:20 Mother Hypertensive disorder [email or web address] Not available 2023 08:21:20 Mother Cerebrovascu lar accident [email or web address] Not available 08:21:20 Sister Malignant neoplasm of uterus csprinkel Not available 2023 17:16:06 Sister Attention deficit hyperactivit y disorder [email or web address] Not available 05/31 08:21:20 Sister Alzheimer's disease [email or web address] Not available 2023 08:21:20 Sister Family history of malignant neoplasm [email or web address] Not available 2023 08:21:20 Unspecified Relation Arthritis [email or web address] Not available 024 08:21:20 Medical History Condition Response High Blood Pressure N COPD Y Depression N Anxiety Disorder N Arthritis N Cancer N Stroke N Fibromyalgia N Kidney Disease N Attention-deficit Hyperactivity Disorder N Thyroid Problems N Anemia N Diabetes N Bleeding Disorder N Hyperlipidemia N Asthma N Seizures N Heart Disease N Osteoporosis N Gynecological HistoryNo gynecological history recorded. Obstetrics History GPAL:G 0 P 0 0 0 0 Past Encounters Encounter ID Performer Location Encounter Start Date Encounter Closed Date Diagnosis/Indication Diagnosis SNOMED-CT Code Diagnosis ICD10 Code Diagnosis Note [id number] [facility] [place] [address] 03/02/2024 12:24:00 03/02/2024 14:53:25 Chest pain 05442495 R07.9 Increased belching 56701 005 R14.2 Pain of left wrist 31354 49259 61226 M25.532 Cough 47830717 R05.9 [id number] MD [facility] [place] [address] 04/13/2024 15:38:52 04/13/2024 16:57:13 Hypothyroidism 06180416 E03.9 Vitamin D deficiency 347 15635 E55.9 Essential tremor 8783787 09 G25.0 Chronic ob structive pulmonary disease 11809836 J44.9 Smokes tobacco daily 449 101405 Z72.0 [id number] [facility] [place] [address] 06/01/2024 14:55:10 06/01/2024 16:44:37 Acute left otitis media 892223341 H66.92 Bronchitis 10085860 J40 [id number] [facility] [place] [address] 07/13/2024 15:46:21 07/13/2024 17:29:19 Pain in right foot 4055291714 83384 M79.671 Hypothyroidism 21226398 E03.9 [id number] Farrah Coley MD [facility] [place] [address] 09/21/2024 10:23:47 09/21/2024 11:31:18 Smokes tobacco daily 298928770 Z72.0 Chronic ob structive pulmonary disease 58789221 J44.9 Cough 88842614 R05.9 Essential tremor 1346848 09 G25.0 Hypothyroidism 56257626 E03.9 Hypertensive disorder 38 255379 I10 [id number] [facility] [place] [address] 11/25/2024 09:13:53 11/25/2024 10:41:00 Pain in right heel 8120485697 230030 M79.671 Chronic sinusitis 671538 00 J32.9 J40 Health Concerns Section Related Observation LastModified by Organization Detai ls LastModified Time None Recorded Concern Status LastModified by Organization Details LastModified Time None Recorded Advance Directives Directive N: Payers Insurance Date Sequence Insurance Name Policy Number Policy Ruiz Covered Member ID Ruiz Member ID Guarantor Name 11/24/2024 1 [employer] () Cammy Toure [employer] [id number] Cammy Toure [employer] 11/24/2024 2 [facility] - DOS ON OR AFTER 21 (MEDICAID REPLACEMENT - HMO) Cammy Vivar [id number] Cammy Vivar Notes Date Note Type Note Provider Name a nd Address Organization Details Recorded Time 04/13/2024 text/html Cammy is a 64-year-old woman who is here today with several concerns. She has hypothyroidism. She has not always been compliant with her medicine and sometimes her TSH is 70. Recently she has been more compliant and her thyroid levels have come down into near normal range. We have continued to manipulate her numbers. Recently she is having more tremors and shakes and she wonders if she is getting too much thyroid medicine she has not been sleeping. She has been feeling more lethargic and finding that she is craving salt and sugar. She has COPD she smokes at least a pack of cigarettes per day and sits in her room all day doing this. She has developed a rash on her upper body. It is pruritic in nature. She denies any new treatments. She has no new cats or dogs. She has been putting rubbing alcohol on the irritation. She is finding that she is forgetting things. Her daughter is always telling her that she needs to review member what she is doing. She is very excited and that she is going to [place] for vacation up in [place] and her family is gathering there. Her sister is going to use and money to rent a house for her. She is very pleased about that. Farrah Coley MD [address] [place] [address], [phone], [facility] 04/15/2024 21:16:29 06/01/2024 text/html The patient come s in today with complaint of sinus congestion, facial swelling, cough and wheeze. Symptoms started just over a week ago. She had traveled to [place] to see her ailing sister in the [place]. She traveled with several people to [place]. None of those travel mates have become ill. The patient has noticed its primarily in the chest. She is coughing and wheezing at times. She has noticed some increased shortness of breath when she is coughing up yellow-colored sputum. She denies chest pain. She has not had GI symptoms. She has never felt like she had a fever and has not had chills. Her left ear is hurting occasionally. She thought that was due to swimming in the ocean. She has been using her Atrovent and albuterol and it helps for short period of time. She has not been exposed to any known COVID-positive individuals. She is a current smoker. García Lim PA-C [address] [place] [address], [phone], [facility] 06/02/2024 09:16:01 07/13/2024 text/html The patient come s in today with complaint of right foot pain. The foot pain started 2 days ago. Pain she describes as throbbing and afterwards some tingling. She has noticed some redness in the outer aspect of the foot. She has not noticed any swelling. It does not seem to aggravate it when she is walking. She has not noticed any pain proximally in the leg. She does not recall any trauma to the area. She has no history of same or similar type problems. She has no history of gout. She denies fevers or chills. She does have a history of a B12 deficiency and remembers having some nerve issues when it was low. Her TSH dosage had recently been changed. She has not had TSH drawn since April. García Lim PA-C [address] [place] [address], [phone], [facility] 07/14/2024 09:44:56 09/21/2024 text/html Cammy is a 64-year-old smoker who has COPD and a chronic cough and frequent ear infections due to her smoking. She says she has cut back in the winter because they only smoke outside in her home. She smokes a half a cigarette puts it out and then goes back an hour later and smokes the other half. She says this is allowed her to cut back. She does use albuterol Atrovent and Flonase to help with her respiratory symptoms. She has hypothyroidism. She says she has been taking her medication appropriately. And her TSH will go skyhigh. We will check that today. When her thyroid is off she does have a tremor today her tremor is not evident. Blood pressure slightly elevated today. She is not currently taking any blood pressure medicine. She had lost weight and did not seem to need it anymore. Will continue to monitor. She has not had any colon cancer screening. She agrees to try Cologuard. She says there is no colon cancer in her family. She continues to live with her daughter. She says she stays in her room much of the time. They no longer let her smoke in there so she has to go outside to do that. She declines immunizations. She has not followed through with any of the mammogram orders that we have sent Farrah Coley MD [address] [place] [address], [phone], [facility] 09/22/2024 11:40:25 11/25/2024 text/html The patient come s in today with complaint of 1 week of sinus congestion and cough. Last couple days she has noticed some facial swelling on the left-hand side. She has had discomfort in that left ear also. She has a history of Duarte's palsy but has not noticed any droop or numbness in that side of the face. She denies any dental issues. The sputum that she is starting to cough up is thick and yellow. She has noticed a little bit of increase cough. She feels that when she uses the Astelin nasal spray that it makes her dizzy and causes more symptoms. She is not using it. She is out of the fluticasone and has no more refills. She denies chest pain, GI symptoms, fever or chills. She has not been around any ill individuals. She continues to smoke. She does not have a blood pressure monitor at home. She is not taking nver-kuy-uhbkfex medications. She has started to experience right heel pain. It has been present for 3 days. Its primarily on the bottom and hurts worse when she puts pressure on it. It feels better if she walks on her toes. She tried a new pair shoes which has not helped. She has no history of same or similar type issues. She does have history of an ankle fracture on that side. García Lim PA-C [address] [place] [address], [phone], [facility] 11/25/2024 10:16:35 OBGyn Episode No OBEpisode recorded.
--- OUTSIDE RECORDS SUMMARY | 2025-01-12 18:27 | XMS_ITS ---
Author Organization Unknown Address [address] [place] [phone] Phone Care Team Providers Care Incendiary Powder Mixer Name Role Phone EMILIE GODDARD Attending Unavailable Results TSH - Collect Date/Time: 18:05 [facility] ID: [id number] [address] [place] [address], [phone] LOINC: 14929-6 Test Value Unit Reference Range Code Code System Flag TSH. < 0.150 uIU/L L=0.470 H=4.680 61424-4 LOINC L Social History Type Status Start Date End Date Code Code Syst em Smoking History Current every day smoker 320938611 SNOMED CT Smoking History Unknown if ever smoked [address] Sex Female Hospital Discharge Instructions Should you have any questions prior to discharge, please contact a member of your healthcare team. If you have left the hospital and have any questions, please contact your primary care physician. Reason For Referral No Data Found Plan of Treatment MRI Abdomen WWO Contrast ([id number]) 2024 Encounters Encounter Diagnosis Start Date Code Code Sys tem Hypothyroidism, unspecified 10/22/2023 SNOMED-CT Personal Care Team Section Performer Name Performer Role Active Date Inactive Mau Jurado
--- OUTSIDE RECORDS SUMMARY | 2025-01-12 18:27 | XMS_ITS ---
Author Organization Unknown Address [address] [place] [address] [phone] Phone Care Team Providers Care Geospatial Analyst Name Role Phone EMILIE GODDARD Attending Unavailable MAURI CHAIDEZ Secondary Unavailable Results BUN/CREAT - Collect Date/Aldair e: 11/30/2024 08:41 [facility] [id number] [address] [place] [address], [phone] LOINC: 3097-3 Test Value Unit Reference Range Code Code System Flag BUN 21 mg/dL L=7 H=20 3094-0 LOINC H CREATININE 0.90 mg/dL L=0.52 H=1.04 2160-0 LOINC AGE 64 95248-9 LOINC eGFR NON-AFR 67 ml/min eGFR AFR AMER 81 ml/min FOOT 3V RIGHT - Completed: 0 11/30/2024 08:48 LOINC: \TM00\12PI\DRAo\BM09\ \MRHo\ [address] [address] ---------NAME--------- NUMBER SEX AGE ADMIT DISC. XRAY# F/C TYPE GELACIOLANI MORRISSEY [id number] F 64 11/30/24 11/30/24 90343 HB5 O/P DATE OF : 1960 M/R# [id number] PH#: [phone] RM \MRHx\ LOCATION: TRANSCRIBED: 11/30/24 8:53 FOOT 3V RIGHT [id number] COMPLETED:11/30/24 8:48 KEW 52560 {REASON-FT/TOE/HEEL: RT FOOT PAIN PHYSICIAN: EMILIE DOTSON C R A D I O L O G Y R E P O R T FOOT 3V RIGHT, INDICATION: RT FOOT PAIN TECHNICAL DATA: Frontal, oblique and lateral views were obtained of the right foot. COMPARISON: None FINDINGS: No fracture is identified. Joint spaces are maintained. Alignment is anatomic. The hallux sesamoids appear normal. Soft tissues are within normal limits. Heel spur. IMPRESSION: 1. No acute fracture or dislocation of the right foot. H COMMANDER \ITLo\ \UNDo\ \UNDx\ \ITLx\ Reviewed and Electronically Signed by: Jacklyn Crook MD Signed Date: 11/30/24 08:53 MRI ABDOMEN W+WO CONTRAST - Completed: 11/30/2024 08:33 LOINC: \TM00\12PI\DRAo\BM09\ \MRHo\ [address] [address] ---------NAME--------- NUMBER SEX AGE ADMIT DISC. XRAY# F/C TYPE DEPLANI MORRISSEY [id number] F 64 11/30/24 11/30/24 82670 HB5 O/P DATE OF : 1960 M/R# [id number] #: [id number] \MRx\ LOCATION: TRANSCRIBED: 11/30/24 13:46 MRI ABDOMEN W+WO CONTRAST [id number] COMPLETED:11/30/24 8:33 ASH [id number] {REASON-MRI ABD: MUCINOUS NEOPLAM OF PANCREAS PHYSICIAN: EMILIE Lopez R A D I O L O G Y R E P O R T MRI Abdomen, MRCP with and without IV Contrast Exam Date: 11/30/2024 09:11 AM Comparison: None History: MUCINOUS NEOPLAM OF PANCREAS Technique: Multisequence multiplanar MRI images were obtained of the abomen. MRCP including 3D SPACE, Radial 3D slabs and SPACE 3D MIP images 13 mL of proHance was administered intravenously during this examination. Initial imaging is obtained without intravenous contrast. Findings: Liver: The liver is normal in size without focal lesions. Normal liver contour. Spleen: Unremarkable. Pancreas: Stable cystic lesion in the uncinate process of the pancreas measuring up to 16 mm. Gallbladder and ducts: Gallbladder is surgically absent. The cystic duct, right and left hepatic ducts, common hepatic duct, and common bile ducts are unremarkable. The pancreatic duct is within normal limits. Adrenal glands: Unremarkable. Kidneys: Normal enhancement without suspicious lesions or hydronephrosis. Visualized bowel: Grossly unremarkable. Vasculature: Unremarkable. Lymphadenopathy: No evidence for lymphadenopathy. Ascites: Absent. Musculoskeletal: Bone marrow signal is normal. IMPRESSION: 1. Stable cystic lesion in the uncinate process of the pancreas measuring up to 16 mm, likely side-branch IPMN. HS:Y. H COMMANDER \ITLo\ \UNDo\ \UNDx\ \ITLx\ Reviewed and Electronically Signed by: Ramirez Lopez MD Signed Date: 11/30/24 13:46 Social History Type Status Start Date End Date Code Code Syst em Smoking History Current every day smoker 947254157 SNOMED CT Smoking History Unknown if ever smoked [address] Sex Female Hospital Discharge Instructions Should you have any questions prior to discharge, please contact a member of your healthcare team. If you have left the hospital and have any questions, please contact your primary care physician. Reason For Referral No Data Found Plan of Treatment MRI Abdomen WWO Contrast ([id number]) 2024 Encounters Encounter Diagnosis Start Date Code Code Sys tem Neoplasm of unspecified behavior of digestive system 0 11/30/2024 SNOMED-CT Personal Care Team Section Performer Name Performer Role Active Date Inactive Mau Jurado Imaging Narrative Notes [facility] 11/30/2024 08:[address] [address] ---------NAME--------- NUMBER SEX AGE ADMIT DISC. XRAY# F/C TYPE DEPPER RIAZ MORRISSEY [id number] F 64 11/30/24 11/30/24 05409 HB5 O/P DATE OF : 1960 M/R# [id number] #: [id number] LOCATION: TRANSCRIBED: 11/30/24 8:53 FOOT 3V RIGHT [id number] COMPLETED:11/30/24 8:48 KEW 82050 {REASON-FT/TOE/HEEL: RT FOOT PAIN PHYSICIAN: PHAN ANGELA SPRINKEL C RADIOLOGY REPORT FOOT 3V RIGHT, INDICATION: RT FOOT PAIN TECHNICAL DATA: Frontal, oblique and lateral views were obtained of the right foot. COMPARISON: None FINDINGS: No fracture is identified. Joint spaces are maintained. Alignment is anatomic. The hallux sesamoids appear normal. Soft tissues are within normal limits. Heel spur. IMPRESSION: 1. No acute fracture or dislocation of the right foot. H COMMANDER Reviewed and Electronically Signed by: Jacklyn Crook MD Signed Date: 11/30/24 08:53 [facility] 11/30/2024 13:[address] [address] ---------NAME--------- NUMBER SEX AGE ADMIT DISC. XRAY# F/C TYPE CODY RIAZ MORRISSEY [id number] F 64 11/30/24 11/30/24 96581 HB5 O/P DATE OF : 1960 M/R# [id number] #: [id number] LOCATION: TRANSCRIBED: 11/30/24 13:46 MRI ABDOMEN W+WO CONTRAST [id number] COMPLETED:11/30/24 8:33 ASH [id number] {REASON-MRI ABD: MUCINOUS NEOPLAM OF PANCREAS PHYSICIAN: EMILIE DOTSON C RADIOLOGY REPORT MRI Abdomen, MRCP with and without IV Contrast Exam Date: 11/30/2024 09:11 AM Comparison: None History: MUCINOUS NEOPLAM OF PANCREAS Technique: Multisequence multiplanar MRI images were obtained of the abomen. MRCP including 3D SPACE, Radial 3D slabs and SPACE 3D MIP images 13 mL of proHance was administered intravenously during this examination. Initial imaging is obtained without intravenous contrast. Findings: Liver: The liver is normal in size without focal lesions. Normal liver contour. Spleen: Unremarkable. Pancreas: Stable cystic lesion in the uncinate process of the pancreas measuring up to 16 mm. Gallbladder and ducts: Gallbladder is surgically absent. The cystic duct, right and left hepatic ducts, common hepatic duct, and common bile ducts are unremarkable. The pancreatic duct is within normal limits. Adrenal glands: Unremarkable. Kidneys: Normal enhancement without suspicious lesions or hydronephrosis. Visualized bowel: Grossly unremarkable. Vasculature: Unremarkable. Lymphadenopathy: No evidence for lymphadenopathy. Ascites: Absent. Musculoskeletal: Bone marrow signal is normal. IMPRESSION: 1. Stable cystic lesion in the uncinate process of the pancreas measuring up to 16 mm, likely side-branch IPMN. HS:Y. H COMMANDER Reviewed and Electronically Signed by: Ramirez Lopez MD Signed Date: 11/30/24 13:46
--- OUTSIDE RECORDS SUMMARY | 2025-01-12 18:28 | XMS_ITS ---
Author Organization Unknown Address [address] [place] [phone] Phone Care Team Providers Care Director Home Health Name Role Phone EMILIE GODDARD Attending Unavailable Results US ECHO W/ COLOR - Completed : 08/05/2023 09:25 LOINC: See Scanned Image Attachment for Report Dictated By: Vickie Initials: BG Trans Date: 08/09/23 15:40 <<REPDIST>> Social History Type Status Start Date End Date Code Code Syst em Smoking History Current every day smoker [id number] SNOMED CT Smoking History Unknown if ever smoked [id number] Sex Female Hospital Discharge Instructions Should you have any questions prior to discharge, please contact a member of your healthcare team. If you have left the hospital and have any questions, please contact your primary care physician. Reason For Referral No Data Found Plan of Treatment MRI Abdomen WWO Contrast ([id number]) 2024 Encounters Encounter Diagnosis Start Date Code Code Sys tem Heart murmur 08/05/2023 27212407 SNOMED-CT Personal Care Team Section Performer Name Performer Role Active Date Inactive Mau [facility] Imaging Narrative Notes [facility] 08/09/2023 15:[address] [address] RADIOLOGY REPORT Patient Number: [id number] Patient Name: CODY MORRISSEY Type: O/P MR Number: [id number] : 1960 Age: 63 Sex: F Room #: Admit Date: 08/05/23 Discharge Date 08/05/23 Ordering Physician: EMILIE GODDARD Family Physician: EMILIE Reid Physician: X-Ray Number : [id number] US ECHO W/ COLOR [id number] COMPLETE:08/05/23 09:25 APC [id number] (REASON-ECHO COMPLTE: murmur See Scanned Image Attachment for Report Dictated By: Vickie Initials: Trans Date: 08/09/23 15:40 <<REPDIST>>
--- OUTSIDE RECORDS SUMMARY | 2025-01-12 18:28 | XMS_ITS ---
Author Organization Unknown Address [address] [place] [phone] Phone Care Team Providers Care Host Name Role Phone KRISTY ROQUE Attending Unavailable EMILIE GODDARD Primary Unavailable Results TROPONIN LEVEL - Collect Shmuel e/Time: 12/31/2024 22:52 [facility] ID: [id number] [address] [place] [address], [phone] LOINC: 94084-7 Test Value Unit Reference Range Code Code System Flag TROPONIN < 0.012 ng/mL L=0.000 H=0.033 05381-2 LOINC URINALYSIS w/Microscopy/C&S if indicated - Collect Date/Time: 12/31/2024 21:49 [facility] ID: [id number] [address] [place] [address], [phone] LOINC: 76008-6 Test Value Unit Reference Range Code Code System Flag UR SOURCE VOIDED 94523-8 LOINC COLOR LT YELLOW YELLOW 5778-6 LOINC CLARITY CLOUDY CLEAR 95530-9 LOINC SPEC GRAVITY 1.015 1.000-1.030 5811-5 LOINC PH 7.0 5.0 - 6.5 5803-2 LOINC LEUK EST NEGATIVE NEGATIVE 5799-2 LOINC NITRATE NEGATIVE NEGATIVE PROTEIN NEGATIVE NEGATIVE 5804-0 LOINC GLUCOSE NEGATIVE NEGATIVE 84964-6 LOINC KETONES NEGATIVE NEGATIVE 48238-9 LOINC UROBILINOGEN 1.0 0.2 - 1.0 5818-0 LOINC BILIRUBIN NEGATIVE NEGATIVE 91764-7 LOINC BLOOD NEGATIVE NEGATIVE 20676-7 LOINC WBC 0-2 0 - 2 68361-0 LOINC RBC 0-2 0 - 2 17865-1 LOINC SQ EPITHELIAL FEW RARE-FEW BACTERIA 2+ NONE SEEN 81628-6 LOINC A MUCUS FEW NONE SEEN 8247-9 LOINC YEAST NOT PRESENT NOT PRESENT 27545-8 LOINC TRICHOMONAS NOT PRESENT NOT PRESENT 85230-1 LOINC SPERMATOZOA NOT PRESENT NOT PRESENT 45031-2 LOINC CASTS PRESENT 38131-8 LOINC HYALINE 0-2/LPF NONE SEEN GRANULAR 0-2/LPF NONE SEEN WBC CAST NONE SEEN 5820-6 LOINC RBC CAST NONE SEEN 5807-3 LOINC WAXY CAST NONE SEEN 35419-5 LOINC CRYSTALS PRESENT 12292-0 LOINC AMORPH URATE NONE SEEN 13211-5 LOINC AMORPH PHOS 2+ NONE SEEN 61925-5 LOINC CA OXALATE NONE SEEN 51730-7 LOINC TRIPLE PHOS NONE SEEN 86637-6 LOINC URIC ACID NONE SEEN 5817-2 LOINC AMM BIURATE NONE SEEN 5766-1 LOINC CA CARBONATE NONE SEEN 30001-9 LOINC CA PHOSPHATE NONE SEEN 03137-5 LOINC CULTURE? NO 8251-1 LOINC DIAGNOSIS N/A CBC W/ DIFF - Collect Date/T sheryl: 12/31/2024 20:54 [facility] ID: [id number] [address] [place], [place], [phone] LOINC: 62098-8 Test Value Unit Reference Range Code Code System Flag WBC 8.0 10^3uL L=4.8 H=10.8 RBC 4.55 10^6uL L=4.20 H=5.40 HEMOGLOBIN 13.3 g/dL L=12.0 H=16.0 718-7 LOINC HEMATOCRIT 40.9 VOL% L=37.0 H=47.0 4544-3 LOINC MCV 89.9 fL L=81.0 H=99.0 MCH 29.2 pg L=27.0 H=32.0 MCHC 32.5 g/dL L=32.0 H=36.0 PLATELETS 236 10^3uL L=100 H=400 21636-8 LOINC RDW 14.4 % L=11.7 H=15.5 %GRAN 66.9 % L=40.0 H=70.0 66172-9 LOINC %LYMPH 20.0 % L=20.0 H=45.0 736-9 LOINC %MONO 10.0 % L=2.0 H=10.0 30995-7 LOINC %EOS 2.4 % L=0.0 H=6.0 713-8 LOINC %BASO 0.6 % L=0.0 H=3.0 706-2 LOINC #NEUT 5.4 10^3uL L=1.9 H=7.6 93250-7 LOINC #LYMPH 1.6 10^3uL L=0.9 H=4.9 49036-6 LOINC #MONO 0.8 10^3uL L=0.1 H=0.9 51398-7 LOINC #EOS 0.2 10^3uL L=0.0 H=0.6 712-0 LOINC #BASO 0.05 10^3uL L=0.00 H=0.10 77212-5 LOINC #IM GRANS 0.0 10^3uL L=0.0 H=7.0 91014-4 LOINC %IM GRANS 0.1 % L=0.0 H=5.0 66139-3 LOINC %NRB 0.0 L=0.0 H=0.2 02186-7 LOINC #NRB 0.000 L=0.000 H=0.012 17085-7 LOINC MANUAL DIFF NOT INDICATED RBC MORPH NOT INDICATED COMPREHENSIVE METABOLIC PANE L - Collect Date/Time: 12/31/2024 20:54 [facility] ID: [id number] [address] [place], [place], [phone] LOINC: 51949-8 Test Value Unit Reference Range Code Code System Flag FASTING UNKNOWN BUN 19 mg/dL L=7 H=20 3094-0 LOINC CREATININE 0.70 mg/dL L=0.52 H=1.04 2160-0 LOINC GLUCOSE 99 mg/dL L=74 H=106 2345-7 LOINC SODIUM 139 mmol/L L=132 H=144 2951-2 LOINC POTASSIUM 3.5 mmol/L L=3.5 H=5.1 2823-3 LOINC CHLORIDE 106 mmol/L L=98 H=107 2075-0 LOINC CO2 27.0 mmol/L L=22.0 H=30.0 2028-9 LOINC ANION GAP 10 L=10 H=20 71099-8 LOINC OSMOLALITY 290 mOs/kG L=280 H=296 96854-9 LOINC BUN/CREAT 27.1 3097-3 LOINC CALCIUM 9.0 mg/dL L=8.3 H=10.5 18245-3 LOINC AST 23 U/L L=15 H=46 1920-8 LOINC ALT 14 U/L L=9 H=72 1742-6 LOINC ALKALINE PHOS 111 U/L L=38 H=126 6768-6 LOINC TOTAL BILI 0.3 mg/dL L=0.2 H=1.3 1975-2 LOINC ALBUMIN 4.0 G/dL L=3.5 H=5.0 1751-7 LOINC TOTAL PROTEIN 6.9 g/L L=6.3 H=8.2 2885-2 LOINC A/G RATIO 1.4 23251-3 LOINC AGE 64 00431-5 LOINC eGFR NON-AFR 90 ml/min eGFR AFR AMER 109 ml/min D DIMER - Collect Date/Time: 12/31/2024 20:54 [facility] ID: [id number] [address] [place] [address], [phone] LOINC: Test Value Unit Reference Range Code Code System Flag DDIMER 0.59 mg/L FEU L=0.00 H=0.50 H SED RATE - Collect Date/Time : 12/31/2024 20:54 [facility] ID: [id number] [address] [place] [address], [phone] LOINC: Test Value Unit Reference Range Code Code System Flag SED RATE 7 mm/hr L=0 H=20 PROCALCITONIN - Collect Date /Time: 12/31/2024 20:54 [facility] ID: [id number] [address] [place] [address], [phone] LOINC: 08237-5 Test Value Unit Reference Range Code Code System Flag PROCALCITONIN 0.04 ng/mL L=0.00 H=0.08 LACTIC ACID - Collect Date/T sheryl: 12/31/2024 20:54 [facility] ID: [id number] [address] [place] [address], [phone] LOINC: 18400-5 Test Value Unit Reference Range Code Code System Flag LACTIC ACID 0.8 mmol/L L=0.7 H=2.6 55150-5 LOINC LIPASE - Collect Date/Time: 12/31/2024 20:54 [facility] ID: [id number] [address] [place] [address], [phone] LOINC: 3040-3 Test Value Unit Reference Range Code Code System Flag LIPASE 88 U/L L=23 H=300 3040-3 LOINC PRO BNP - Collect Date/Time: 12/31/2024 20:54 [facility] ID: [id number] [address] [place] [address], [phone] LOINC: 43218-3 Test Value Unit Reference Range Code Code System Flag Pro BNP2 56 pg/mL L=0 H=900 75099-1 LOINC TROPONIN LEVEL - Collect Shmuel e/Time: 12/31/2024 20:54 [facility] ID: [id number] [address] [place] [address], [phone] LOINC: 58523-0 Test Value Unit Reference Range Code Code System Flag TROPONIN < 0.012 ng/mL L=0.000 H=0.033 88387-0 LOINC CRP NON SPECIFIC - Collect D ate/Time: 12/31/2024 20:54 [facility] ID: [id number] [address] [place] [address], [phone] LOINC: 1988-01 Test Value Unit Reference Range Code Code System Flag CRP-NON SPECIFIC 11.1 mg/L L=0.0 H=10.0 1988-01 LOINC H CHEST 2V - Completed: 2024 21:13 LOINC: \TM00\12PI\DRAo\BM09\ \MRHo\ [address] [address] ---------NAME--------- NUMBER SEX AGE ADMIT DISC. XRAY# F/C TYPE DEPPER RIAZ MORRISSEY [id number] F 64 12/31/24 98057 HB5 E.R. DATE OF : 1960 M/R# [id number] #: [id number] ED-30 \MRHx\ LOCATION: TRANSCRIBED: 12/31/24 21:22 CHEST 2V 12444 COMPLETED:12/31/24 21:13 KEW 70275 Chest Pain PHYSICIAN: KRISTY ESQUIVEL R A D I O L O G Y R E P O R T EXAM: CHEST 2V CLINICAL HISTORY: Chest Pain TECHNIQUE: PA and lateral views of the chest WID: COMPARISON: CHEST 2V on DOS: 03/02/24 FINDINGS: Lines and tubes: None Chest: The heart size and pulmonary vasculature is within normal limits. Calcified plaque projects over the aortic arch. No pleural effusion, pneumothorax, or consolidation. Linear scarring in the left lung base. The osseous structures are grossly intact. IMPRESSION: No acute cardiopulmonary abnormality. ER WHEELCHAIR \ITLo\ \UNDo\ \UNDx\ \ITLx\ Reviewed and Electronically Signed by: WES NOE Signed Date: SIGNDATE CT ABD/PEL W/ CONTRAST - Com pleted: 12/31/2024 22:11 LOINC: 18376-5 \TM00\12PI\DRAo\BM09\ \MRHo\ [address] [address] ---------NAME--------- NUMBER SEX AGE ADMIT DISC. XRAY# F/C TYPE DEPLANI RIAZ MORRISSEY [id number] F 64 12/31/24 48421 HB5 E.R. DATE OF : 1960 M/R# [id number] #: [id number] ED-30 [facility] LOCATION: TRANSCRIBED: 12/31/24 23:39 CT ABD/PEL W/ CONTRAST 26605 COMPLETED:12/31/24 22:11 [facility] [address] {REASON-CT ABD/PELVIS ABDOMINAL PAIN PHYSICIAN: KRISTY ESQUIVEL R A D I O L O G Y R E P O R T CTA CHEST, CT ABDOMEN AND PELVIS Clinical Indication: Female, 64 old. 64 years old, Female; abdominal pain. Technique: Multiple contiguous axial images were obtained through the chest, abdomen and pelvis following the administration of IV contrast material. Post processing coronal and sagittal reconstruction images were made from the axial images. Image post-processing was obtained. MIP images of the pulmonary arteries obtained. IV contrast: 100 mL Isovue-370 Comparison: None CHEST FINDINGS: Lower Neck: Unremarkable Axilla, Mediastinum and Della: No thoracic lymphadenopathy. There are calcified mediastinal and right hilar lymph nodes. Small hiatal hernia. Heart and Great Vessels: Normal-sized heart without pericardial effusion. The thoracic aorta is patent and normal caliber containing vxuh-iv-fdvpidnb mixed atherosclerotic plaque. There is no central, segmental, or subsegmental pulmonary artery filling defect to suggest pulmonary embolism. Airway, Lungs and Pleura: Mild biapical pleural-parenchymal scarring. The trachea and central airways are patent aside from mild inspissated secretions in the trachea extending into the right mainstem bronchus. A few sub 5 mm pulmonary nodules in the right upper lobe on series 5 image 17, in the right middle lobe on series 5, image 69, in the right lower lobe on series 5, image 70 left upper lobe series 5, images 27, 43 and 52. There is no airspace consolidation or pleural effusion. There is mild mosaic attenuation of the lungs. Chest Wall and Osseous Structures: No destructive osseous lesion. ABDOMEN AND PELVIS FINDINGS: Liver and Biliary system: Prior cholecystectomy with mild choledocho ectasia, otherwise unremarkable. Spleen: Unremarkable. Adrenal Glands and Kidneys: Unremarkable. Pancreas and Retroperitoneum: There is a cystic lesion in the head of the pancreas measuring 1.4 cm on series 2, image 53. Remainder of the pancreas is unremarkable. There is no pelvic lymphadenopathy. Aorta and Major Vessels: Aortoiliac vessels are patent and normal caliber containing cfmd-sc-oqgmpiqd mixed atherosclerotic plaque. Bowel, Mesentery and Peritoneal space: Small and large bowel loops are normal in caliber. Moderate distal colonic diverticulosis. There is a normal appendix. There is no free air or fluid collection. Pelvis: Urinary bladder is minimally distended with mild wall thickening. The uterus is mildly atrophic. Tiny postmenopausal cyst in the right ovary. The left ovary is atrophic. There is no pelvic lymphadenopathy. Abdominal wall and Osseous Structures: No destructive osseous lesion. Minor lumbar spondylosis. IMPRESSION: CHEST: * No evidence of pulmonary embolism or pneumonia. * Scattered sub 5 mm bilateral pulmonary nodules, nonspecific on initial exam and could be noncalcified granulomas. If there are risk factors for pulmonary malignancy, optional follow-up CT chest could be obtained in 1 year for re-evaluation. ABDOMEN AND PELVIS: * Cystic lesion in the head of the pancreas which was evaluated on recent MRI abdomen from 11/30/2024. * Moderate distal colonic diverticulosis. * No bowel obstruction, fluid collection, or free air. Normal appendix. ER WHEELCHAIR \ITLo\ \UNDo\ \UNDx\ \ITLx\ Reviewed and Electronically Signed by: WES NOE Signed Date: SIGNDATE CT CHEST PE ANGIO W/ CONTRAS T - Completed: 12/31/2024 22:11 LOINC: 71033-8 \TM00\12PI\DRAo\BM09\ \MRHo\ [address] [address] ---------NAME--------- NUMBER SEX AGE ADMIT DISC. XRAY# F/C TYPE DEPPER RIAZ MORRISSEY [id number] F 64 12/31/24 41516 HB5 E.R. DATE OF : 1960 M/R# [id number] #: [id number] ED-30 \MRHx\ LOCATION: TRANSCRIBED: 12/31/24 23:39 CT CHEST PE ANGIO W/ CONTRAST 36887 COMPLETED:12/31/24 22:11 KEW 82060 abdominal pain PHYSICIAN: KRISTY ESQUIVEL R A D I O L O G Y R E P O R T CTA CHEST, CT ABDOMEN AND PELVIS Clinical Indication: Female, 64 old. 64 years old, Female; abdominal pain. Technique: Multiple contiguous axial images were obtained through the chest, abdomen and pelvis following the administration of IV contrast material. Post processing coronal and sagittal reconstruction images were made from the axial images. Image post-processing was obtained. MIP images of the pulmonary arteries obtained. IV contrast: 100 mL Isovue-370 Comparison: None CHEST FINDINGS: Lower Neck: Unremarkable Axilla, Mediastinum and Della: No thoracic lymphadenopathy. There are calcified mediastinal and right hilar lymph nodes. Small hiatal hernia. Heart and Great Vessels: Normal-sized heart without pericardial effusion. The thoracic aorta is patent and normal caliber containing zkkv-kv-sinwwqrb mixed atherosclerotic plaque. There is no central, segmental, or subsegmental pulmonary artery filling defect to suggest pulmonary embolism. Airway, Lungs and Pleura: Mild biapical pleural-parenchymal scarring. The trachea and central airways are patent aside from mild inspissated secretions in the trachea extending into the right mainstem bronchus. A few sub 5 mm pulmonary nodules in the right upper lobe on series 5 image 17, in the right middle lobe on series 5, image 69, in the right lower lobe on series 5, image 70 left upper lobe series 5, images 27, 43 and 52. There is no airspace consolidation or pleural effusion. There is mild mosaic attenuation of the lungs. Chest Wall and Osseous Structures: No destructive osseous lesion. ABDOMEN AND PELVIS FINDINGS: Liver and Biliary system: Prior cholecystectomy with mild choledocho ectasia, otherwise unremarkable. Spleen: Unremarkable. Adrenal Glands and Kidneys: Unremarkable. Pancreas and Retroperitoneum: There is a cystic lesion in the head of the pancreas measuring 1.4 cm on series 2, image 53. Remainder of the pancreas is unremarkable. There is no pelvic lymphadenopathy. Aorta and Major Vessels: Aortoiliac vessels are patent and normal caliber containing chfb-or-shfwhvlb mixed atherosclerotic plaque. Bowel, Mesentery and Peritoneal space: Small and large bowel loops are normal in caliber. Moderate distal colonic diverticulosis. There is a normal appendix. There is no free air or fluid collection. Pelvis: Urinary bladder is minimally distended with mild wall thickening. The uterus is mildly atrophic. Tiny postmenopausal cyst in the right ovary. The left ovary is atrophic. There is no pelvic lymphadenopathy. Abdominal wall and Osseous Structures: No destructive osseous lesion. Minor lumbar spondylosis. IMPRESSION: CHEST: * No evidence of pulmonary embolism or pneumonia. * Scattered sub 5 mm bilateral pulmonary nodules, nonspecific on initial exam and could be noncalcified granulomas. If there are risk factors for pulmonary malignancy, optional follow-up CT chest could be obtained in 1 year for re-evaluation. ABDOMEN AND PELVIS: * Cystic lesion in the head of the pancreas which was evaluated on recent MRI abdomen from 11/30/2024. * Moderate distal colonic diverticulosis. * No bowel obstruction, fluid collection, or free air. Normal appendix. ER WHEELCHAIR \ITLo\ \UNDo\ \UNDx\ \ITLx\ Reviewed and Electronically Signed by: DCTNAMAna Laura NOE Signed Date: SIGNDATE SHOULDER MIN 2V LEFT - Compl eted: 12/31/2024 21:13 LOINC: \TM00\12PI\DRAo\BM09\ \MRHo\ [address] [address] ---------NAME--------- NUMBER SEX AGE ADMIT DISC. XRAY# F/C TYPE DEPPER RIAZ MORRISSEY [id number] F 64 12/31/24 88917 HB5 E.R. DATE OF : 1960 M/R# [id number] #: [id number] ED-30 \MRHx\ LOCATION: TRANSCRIBED: 12/31/24 21:38 SHOULDER MIN 2V LEFT 20381 COMPLETED:12/31/24 21:13 [place] [address] Chest Pain PHYSICIAN: KRISTY ESQUIVEL R A D I O L O G Y R E P O R T CLINICAL INDICATION: Chest Pain TECHNIQUE: 3 radiographic views of the left shoulder were obtained. Comparison: None FINDINGS/IMPRESSION: There is no evidence of acute fracture or dislocation. Narrowing of the left acromial humeral interval which is most likely due to chronic rotator cuff injury. Nvqf-fj-kaexokps degenerative changes of the left AC joint. The visualized lungs are clear. ER WHEELCHAIR \ITLo\ \UNDo\ \UNDx\ \ITLx\ Reviewed and Electronically Signed by: Mony Limon DO Signed Date: 12/31/24 21:38 SHOULDER MIN 2V RIGHT - Comp leted: 12/31/2024 21:13 LOINC: \TM00\12PI\DRAo\BM09\ \MRHo\ [address] [address] ---------NAME--------- NUMBER SEX AGE ADMIT DISC. XRAY# F/C TYPE DEPPER RIAZ MORRISSEY [id number] F 64 12/31/24 93928 HB5 E.R. DATE OF : 1960 M/R# [id number] #: [id number] ED-30 \MRHx\ LOCATION: TRANSCRIBED: 12/31/24 21:37 SHOULDER MIN 2V RIGHT 32960 COMPLETED:12/31/24 21:13 [facility] 707[address] Chest Pain PHYSICIAN: KRISTY ESQUIVEL R A D I O L O G Y R E P O R T CLINICAL INDICATION: Chest Pain TECHNIQUE: 3 radiographic views of the right shoulder were obtained. Comparison: None FINDINGS/IMPRESSION: There is no evidence of acute fracture or dislocation. Mild narrowing of the acromial humeral interval which may be seen with chronic rotator cuff injury. Moderate degenerative changes of the right AC joint. The visualized lungs are clear. ER WHEELCHAIR \ITLo\ \UNDo\ \UNDx\ \ITLx\ Reviewed and Electronically Signed by: Mony Limon DO Signed Date: 12/31/24 21:37 Social History Type Status Start Date End Date Code Code Syst em Smoking History Current every day smoker [id number] SNOMED CT Smoking History Unknown if ever smoked [id number] Sex Female Hospital Discharge Instructions Should you have any questions prior to discharge, please contact a member of your healthcare team. If you have left the hospital and have any questions, please contact your primary care physician. Reason For Referral No Data Found Plan of Treatment MRI Abdomen WWO Contrast (77985) 2024 Encounters Encounter Diagnosis Start Date Code Code Sys tem Primary osteoarthritis, left shoulder 12/31/2024 SNOMED-CT Personal Care Team Section Performer Name Performer Role Active Date Inactive Mau Jurado Imaging Narrative Notes [facility] 12/31/2024 21:[address] [address] ---------NAME--------- NUMBER SEX AGE ADMIT DISC. XRAY# F/C TYPE DEPLANI RIAZ MORRISSEY [id number] F 64 12/31/24 37773 HB5 E.R. DATE OF : 1960 M/R# [id number] #: [id number] ED-30 LOCATION: TRANSCRIBED: 12/31/24 21:38 SHOULDER MIN 2V LEFT 02632 COMPLETED:12/31/24 21:13 KEW 17412 Chest Pain PHYSICIAN: KRISTY ESQUIVEL RADIOLOGY REPORT CLINICAL INDICATION: Chest Pain TECHNIQUE: 3 radiographic views of the left shoulder were obtained. Comparison: None FINDINGS/IMPRESSION: There is no evidence of acute fracture or dislocation. Narrowing of the left acromial humeral interval which is most likely due to chronic rotator cuff injury. Raeb-bq-tlfdziky degenerative changes of the left AC joint. The visualized lungs are clear. ER WHEELCHAIR Reviewed and Electronically Signed by: Mony Limon DO Signed Date: 12/31/24 21:38 [facility] 12/31/2024 21:[address] [address] ---------NAME--------- NUMBER SEX AGE ADMIT DISC. XRAY# F/C TYPE CODY MORRISSEY [id number] F 64 12/31/24 30154 HB5 E.R. DATE OF : 1960 M/R# [id number] #: [id number] ED-30 LOCATION: TRANSCRIBED: 12/31/24 21:22 CHEST 2V 23494 COMPLETED:12/31/24 21:13 KEW 41687 Chest Pain PHYSICIAN: KRISTY ESQUIVEL RADIOLOGY REPORT EXAM: CHEST 2V CLINICAL HISTORY: Chest Pain TECHNIQUE: PA and lateral views of the chest WID: COMPARISON: CHEST 2V on DOS: 03/02/24 FINDINGS: Lines and tubes: None Chest: The heart size and pulmonary vasculature is within normal limits. Calcified plaque projects over the aortic arch. No pleural effusion, pneumothorax, or consolidation. Linear scarring in the left lung base. The osseous structures are grossly intact. IMPRESSION: No acute cardiopulmonary abnormality. ER WHEELCHAIR Reviewed and Electronically Signed by: JANELLNAMAna Laura NOE Signed Date: SIGNDATE [facility] 12/31/2024 23:[address] [address] ---------NAME--------- NUMBER SEX AGE ADMIT DISC. XRAY# F/C TYPE CODY MORRISSEY [id number] F 64 12/31/24 01937 HB5 E.R. DATE OF : 1960 M/R# [id number] #: [id number] ED-30 LOCATION: TRANSCRIBED: 12/31/24 23:39 CT CHEST PE ANGIO W/ CONTRAST 48039 COMPLETED:12/31/24 22:11 KEW 13934 abdominal pain PHYSICIAN: KRISTY ESQUIVEL RADIOLOGY REPORT CTA CHEST, CT ABDOMEN AND PELVIS Clinical Indication: Female, 64 old. 64 years old, Female; abdominal pain. Technique: Multiple contiguous axial images were obtained through the chest, abdomen and pelvis following the administration of IV contrast material. Post processing coronal and sagittal reconstruction images were made from the axial images. Image post-processing was obtained. MIP images of the pulmonary arteries obtained. IV contrast: 100 mL Isovue-370 Comparison: None CHEST FINDINGS: Lower Neck: Unremarkable Axilla, Mediastinum and Della: No thoracic lymphadenopathy. There are calcified mediastinal and right hilar lymph nodes. Small hiatal hernia. Heart and Great Vessels: Normal-sized heart without pericardial effusion. The thoracic aorta is patent and normal caliber containing gcnv-gb-zvbhlrwm mixed atherosclerotic plaque. There is no central, segmental, or subsegmental pulmonary artery filling defect to suggest pulmonary embolism. Airway, Lungs and Pleura: Mild biapical pleural-parenchymal scarring. The trachea and central airways are patent aside from mild inspissated secretions in the trachea extending into the right mainstem bronchus. A few sub 5 mm pulmonary nodules in the right upper lobe on series 5 image 17, in the right middle lobe on series 5, image 69, in the right lower lobe on series 5, image 70 left upper lobe series 5, images 27, 43 and 52. There is no airspace consolidation or pleural effusion. There is mild mosaic attenuation of the lungs. Chest Wall and Osseous Structures: No destructive osseous lesion. ABDOMEN AND PELVIS FINDINGS: Liver and Biliary system: Prior cholecystectomy with mild choledocho ectasia, otherwise unremarkable. Spleen: Unremarkable. Adrenal Glands and Kidneys: Unremarkable. Pancreas and Retroperitoneum: There is a cystic lesion in the head of the pancreas measuring 1.4 cm on series 2, image 53. Remainder of the pancreas is unremarkable. There is no pelvic lymphadenopathy. Aorta and Major Vessels: Aortoiliac vessels are patent and normal caliber containing oxkz-ml-ccfhrjkq mixed atherosclerotic plaque. Bowel, Mesentery and Peritoneal space: Small and large bowel loops are normal in caliber. Moderate distal colonic diverticulosis. There is a normal appendix. There is no free air or fluid collection. Pelvis: Urinary bladder is minimally distended with mild wall thickening. The uterus is mildly atrophic. Tiny postmenopausal cyst in the right ovary. The left ovary is atrophic. There is no pelvic lymphadenopathy. Abdominal wall and Osseous Structures: No destructive osseous lesion. Minor lumbar spondylosis. IMPRESSION: CHEST: * No evidence of pulmonary embolism or pneumonia. * Scattered sub 5 mm bilateral pulmonary nodules, nonspecific on initial exam and could be noncalcified granulomas. If there are risk factors for pulmonary malignancy, optional follow-up CT chest could be obtained in 1 year for re-evaluation. ABDOMEN AND PELVIS: * Cystic lesion in the head of the pancreas which was evaluated on recent MRI abdomen from 11/30/2024. * Moderate distal colonic diverticulosis. * No bowel obstruction, fluid collection, or free air. Normal appendix. ER WHEELCHAIR Reviewed and Electronically Signed by: DCTNAMAna Laura NOE Signed Date: SIGNDATE [facility] 12/31/2024 21:[address] [address] ---------NAME--------- NUMBER SEX AGE ADMIT DISC. XRAY# F/C TYPE DEPPER RIAZ MORRISSEY [id number] F 64 12/31/24 18209 HB5 E.R. DATE OF : 1960 M/R# [id number] #: [id number] ED-30 LOCATION: TRANSCRIBED: 12/31/24 21:37 SHOULDER MIN 2V RIGHT 02111 COMPLETED:12/31/24 21:13 KEW 78976 Chest Pain PHYSICIAN: KRISTY ESQUIVEL RADIOLOGY REPORT CLINICAL INDICATION: Chest Pain TECHNIQUE: 3 radiographic views of the right shoulder were obtained. Comparison: None FINDINGS/IMPRESSION: There is no evidence of acute fracture or dislocation. Mild narrowing of the acromial humeral interval which may be seen with chronic rotator cuff injury. Moderate degenerative changes of the right AC joint. The visualized lungs are clear. ER WHEELCHAIR Reviewed and Electronically Signed by: Mony Limon DO Signed Date: 12/31/24 21:37 [facility] 12/31/2024 23:[address] [address] ---------NAME--------- NUMBER SEX AGE ADMIT DISC. XRAY# F/C TYPE DEPPER RIAZ MORRISSEY [id number] F 64 12/31/24 85187 HB5 E.R. DATE OF : 1960 M/R# [id number] #: [id number] ED-30 LOCATION: TRANSCRIBED: 12/31/24 23:39 CT ABD/PEL W/ CONTRAST [id number] COMPLETED:12/31/24 22:11 KEW [id number] {REASON-CT ABD/PELVIS ABDOMINAL PAIN PHYSICIAN: KRISTY ESQUIVEL RADIOLOGY REPORT CTA CHEST, CT ABDOMEN AND PELVIS Clinical Indication: Female, 64 old. 64 years old, Female; abdominal pain. Technique: Multiple contiguous axial images were obtained through the chest, abdomen and pelvis following the administration of IV contrast material. Post processing coronal and sagittal reconstruction images were made from the axial images. Image post-processing was obtained. MIP images of the pulmonary arteries obtained. IV contrast: 100 mL Isovue-370 Comparison: None CHEST FINDINGS: Lower Neck: Unremarkable Axilla, Mediastinum and Della: No thoracic lymphadenopathy. There are calcified mediastinal and right hilar lymph nodes. Small hiatal hernia. Heart and Great Vessels: Normal-sized heart without pericardial effusion. The thoracic aorta is patent and normal caliber containing uvaz-ql-rfpnpjez mixed atherosclerotic plaque. There is no central, segmental, or subsegmental pulmonary artery filling defect to suggest pulmonary embolism. Airway, Lungs and Pleura: Mild biapical pleural-parenchymal scarring. The trachea and central airways are patent aside from mild inspissated secretions in the trachea extending into the right mainstem bronchus. A few sub 5 mm pulmonary nodules in the right upper lobe on series 5 image 17, in the right middle lobe on series 5, image 69, in the right lower lobe on series 5, image 70 left upper lobe series 5, images 27, 43 and 52. There is no airspace consolidation or pleural effusion. There is mild mosaic attenuation of the lungs. Chest Wall and Osseous Structures: No destructive osseous lesion. ABDOMEN AND PELVIS FINDINGS: Liver and Biliary system: Prior cholecystectomy with mild choledocho ectasia, otherwise unremarkable. Spleen: Unremarkable. Adrenal Glands and Kidneys: Unremarkable. Pancreas and Retroperitoneum: There is a cystic lesion in the head of the pancreas measuring 1.4 cm on series 2, image 53. Remainder of the pancreas is unremarkable. There is no pelvic lymphadenopathy. Aorta and Major Vessels: Aortoiliac vessels are patent and normal caliber containing gesg-qy-uvqlpcdz mixed atherosclerotic plaque. Bowel, Mesentery and Peritoneal space: Small and large bowel loops are normal in caliber. Moderate distal colonic diverticulosis. There is a normal appendix. There is no free air or fluid collection. Pelvis: Urinary bladder is minimally distended with mild wall thickening. The uterus is mildly atrophic. Tiny postmenopausal cyst in the right ovary. The left ovary is atrophic. There is no pelvic lymphadenopathy. Abdominal wall and Osseous Structures: No destructive osseous lesion. Minor lumbar spondylosis.
--- OUTSIDE RECORDS SUMMARY | 2025-01-12 18:28 | XMS_ITS | Encounter Summary ---
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
--- OUTSIDE RECORDS SUMMARY | 2025-01-12 18:28 | XMS_ITS | Clinical Summary ---
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 Gender Identity Not on file Sexual Orientation Not on file Plan of Treatment Health Maintenance Due Date Last Done Comments Cervical Cancer Screening Pa p Smear (Age 30 to 64) Every 3 Years 1960 Colorectal Cancer Screening Colonoscopy (10 Years) 1961 Annual Physical 02/02/1964 Hepatitis C 1979 DTaP, Tdap and Td Vaccines ( 1 - Tdap) 02/02/1980 Cervical Cancer Screening Pa p with HPV Testing (Age 30 to 64) Every 5 Years 1991 Cervical Cancer Screening with HPV 1991 Mammogram Screening 2001 Pneumococcal Vaccine: 50+ Ye ars (1 of 1 - PCV) 2011 Zoster Vaccines (1 of 2) 2011 COVID-19 Vaccine ( - 2023-2 5 season) 2024 RSV Immunization or 60+ Years (1 - 1-dose 75+ series) 02/02/2036 Meningococcal B Vaccine Aged Out No l onger eligible based on patient's age to complete this topic Meningococcal Vaccine Aged Out No gerson mehrdad eligible based on patient's age to complete this topic RSV Immunizations Under 20 Months Aged Out No longer eligible based on patient's age to complete this topic
--- OUTSIDE RECORDS SUMMARY | 2025-01-12 18:28 | XMS_ITS ---
Author Organization Unknown Address [address] [place] [phone] Phone Care Team Providers Care Psychiatric Registered Nurse Name Role Phone EMILIE GODDARD Attending Unavailable Results MRI ABDOMEN W/O CONTRAST - C ompleted: 10/01/2023 12:56 LOINC: EXAM DESCRIPTION: MRI ABDOMEN W/O CONTRAST REASON FOR STUDY: MRCP protocol. Routine annual f/u on IPMN in the head of the pancreas; 4 yrs of s/s: anorexia for 1-2 days at a time w/bloating and upper abdominal pain, once or twice a week, w/weight fluctuation; pt states that her liver and pancreas 'got knicked' during remote cholecystectomy. No noted non- nosocomial incidents. Duration: c.4 yrs with s/s. Previous Surgery: CHOLECYSTECTOMY, IN THE . TECHNIQUE: MRI of the abdomen performed without intravenous contrast according to the MRCP protocol. 3D images rendered on scanning unit and reviewed at time of interpretation. All images stored on PACS. COMPARISON: MR abdomen 09/24/2022 REFERENCE: Per ACR white paper recommendations, unless otherwise specified no follow-up imaging is recommended for incidental renal and adrenal lesions per consensus recommendations based on imaging criteria. Further lab evaluation could be pursued based on clinical findings. FINDINGS: ABDOMEN: LOWER CHEST: No effusion. LIVER: Normal size. No identified cystic or solid masses. GALLBLADDER: No stones. No wall thickening or inflammatory changes. BILE DUCTS: Mildly dilated common bile duct, measuring up to 9 mm in diameter, may be secondary to post cholecystectomy physiology. This is stable in size and appearance from 2019. Lack of IV contrast partially limits evaluation. No significant intrahepatic ductal dilatation. SPLEEN: Normal size. No focal lesions. PANCREAS: Redemonstrated lobulated T2 hyperintense cystic lesion in the anterior pancreatic head measuring 1.5 x 0.9 x 1.8 cm, stable when measured concurrently using similar technique. Redemonstrated thin internal septation. Stable 2 mm cystic lesion in the pancreatic body (series 4001, image 13). No new pancreatic lesions. No adjacent peripancreatic edema or fluid collections. ADRENALS: Normal. KIDNEYS/URINARY TRACT: No identified significant cystic or solid masses. No cysts. No hydronephrosis. GI: No visualized abnormality. PERITONEUM: No ascites. RETROPERITONEUM: No mass or adenopathy. VASCULATURE: No abdominal aortic aneurysm. MUSCULOSKELETAL: No acute findings. OTHER: No other abnormality. IMPRESSION: 1.8 cm cystic lesion in the pancreatic head is grossly stable from 2020, favoring a side-branch IPMN. 12 month follow-up MRI is recommended, per ACR guidelines. THIS IS AN ELECTRONICALLY VERIFIED FINAL REPORT 10/01/2023 4:00 PM - Electronically signed by Heri Barrientos M.D. KR: LIZ Report ID: [id number] Reading Location: [id number] Social History Type Status Start Date End Date Code Code Syst em Smoking History Current every day smoker [id number] SNOMED CT Smoking History Unknown if ever smoked [address] Sex Female Hospital Discharge Instructions Should you have any questions prior to discharge, please contact a member of your healthcare team. If you have left the hospital and have any questions, please contact your primary care physician. Reason For Referral No Data Found Plan of Treatment MRI Abdomen WWO Contrast ([id number]) 2024 Encounters Encounter Diagnosis Start Date Code Code Sys tem Neoplasm of unspecified behavior of digestive system 0 10/01/2023 [employer]™-CT Personal Care Team Section Performer Name Performer Role Active Date Inactive Da yash PHAN Imaging Narrative Notes
--- OUTSIDE RECORDS SUMMARY | 2025-01-12 18:29 | XMS_ITS ---
Author Organization Unknown Address [address] [place] [phone] Phone Care Team Providers Care Straightedge Worker Name Role Phone MAURI CHAIDEZ Attending Unavailable EMILIE GODDARD Primary Unavailable Results TROPONIN LEVEL - Collect Shmuel e/Time: 03/02/2024 12:50 [facility] ID: [id number] [place] [address], [phone] LOINC: 27642-5 Test Value Unit Reference Range Code Code System Flag TROPONIN < 0.012 ng/mL L=0.000 H=0.033 37756-5 LOINC CHEST 2V - Completed: 2023 13:09 LOINC: EXAM DESCRIPTION: CHEST 2V REASON FOR STUDY: STERNAL CHEST PAIN HX COPD AND BRONCHITIS Duration: 1 DAY TECHNIQUE: Frontal and lateral radiographic view(s) of the chest. COMPARISON: 02/24/2021 FINDINGS: LUNGS: Mild hyperinflation of both lungs. No focal opacity, pleural effusion, or pneumothorax. HEART/MEDIASTINUM: Cardiac silhouette normal in size. Mediastinal and hilar contours appear normal. LINES/TUBES: None. BONES: No acute osseous abnormality. IMPRESSION: No acute cardiopulmonary abnormality. THIS IS AN ELECTRONICALLY VERIFIED FINAL REPORT 03/03/2024 7:32 PM - Electronically signed by Wallace Perales M.D. AM: AM Report ID: [id number] Reading Location: [id number] Social History Type Status Start Date End Date Code Code Syst em Smoking History Current every day smoker [id number] SNOMED CT Smoking History Unknown if ever smoked [address] Sex Female Hospital Discharge Instructions Should you have any questions prior to discharge, please contact a member of your healthcare team. If you have left the hospital and have any questions, please contact your primary care physician. Reason For Referral No Data Found Plan of Treatment MRI Abdomen WWO Contrast (37379) 2024 Encounters Encounter Diagnosis Start Date Code Code Sys tem Chest pain 03/02/2024 [id number] SNOMED-CT Personal Care Team Section Performer Name Performer Role Active Date Inactive Mau Jurado Imaging Narrative Notes
[2025-01-12] MEDS: CLINDAMYCIN HCL 150 MG CAP 300 MG PO (18:43)
[2025-01-12] MEDS: COLCHICINE 0.6 MG TABLET 1.2 MG PO (18:52)
--- OUTSIDE RECORDS SUMMARY | 2025-01-12 18:54 | XMS_ITS ---
Author Organization Unknown Address [address] [place] [phone] Phone Care Team Providers Care Senior Materials Planner Name Role Phone EMILIE GODDARD Attending Unavailable Results TSH - Collect Date/Time: 18:05 [facility] ID: [id number] [place] [address], [phone] LOINC: 38471-3 Test Value Unit Reference Range Code Code System Flag TSH. < 0.150 uIU/L L=0.470 H=4.680 06589-1 LOINC L Social History Type Status Start Date End Date Code Code Syst em Smoking History Current every day smoker 420669095 SNOMED CT Smoking History Unknown if ever smoked [address] Sex Female Hospital Discharge Instructions Should you have any questions prior to discharge, please contact a member of your healthcare team. If you have left the hospital and have any questions, please contact your primary care physician. Reason For Referral No Data Found Plan of Treatment MRI Abdomen WWO Contrast (76795) 2024 Encounters Encounter Diagnosis Start Date Code Code Sys tem Hypothyroidism, unspecified 10/22/2023 SNOMED-CT Personal Care Team Section Performer Name Performer Role Active Date Inactive Mau Jurado
--- OUTSIDE RECORDS SUMMARY | 2025-01-12 18:55 | XMS_ITS ---
Author Organization Unknown Address [address] [place] [phone] Phone Care Team Providers Care Geometry Professor Name Role Phone EMILIE GODDARD Attending Unavailable MAURI CHAIDEZ Secondary Unavailable Results BUN/CREAT - Collect Date/Aldair e: 11/30/2024 08:41 [facility] ID: [id number] [address] [place] [address], [phone] LOINC: 3097-3 Test Value Unit Reference Range Code Code System Flag BUN 21 mg/dL L=7 H=20 3094-0 LOINC H CREATININE 0.90 mg/dL L=0.52 H=1.04 2160-0 LOINC AGE 64 14055-8 LOINC eGFR NON-AFR 67 ml/min eGFR AFR AMER 81 ml/min FOOT 3V RIGHT - Completed: 0 11/30/2024 08:48 LOINC: \TM00\12PI\DRAo\BM09\ \MRHo\ [address] [address] ---------NAME--------- NUMBER SEX AGE ADMIT DISC. XRAY# F/C TYPE GELACIOLANI MORRISSEY [id number] F 64 11/30/24 11/30/24 97226 HB5 O/P DATE OF : 1960 M/R# [id number] PH#: [phone] RM \MRHx\ LOCATION: TRANSCRIBED: 11/30/24 8:53 FOOT 3V RIGHT 33421 COMPLETED:11/30/24 8:48 KEW 68444 {REASON-FT/TOE/HEEL: RT FOOT PAIN PHYSICIAN: EMILIE DOTSON [...] fracture or dislocation of the right foot. R INSTALLER \ITLo\ \UNDo\ \UNDx\ \ITLx\ Reviewed and Electronically Signed by: Jacklyn Crook MD Signed Date: 11/30/24 08:53 MRI ABDOMEN W+WO CONTRAST - Completed: 11/30/2024 08:33 LOINC: \TM00\12PI\DRAo\BM09\ \MRHo\ [address] [address] ---------NAME--------- NUMBER SEX AGE ADMIT DISC. XRAY# F/C TYPE DEPLANI MORRISSEY [id number] F 64 11/30/24 11/30/24 65472 HB5 O/P DATE OF : 1960 M/R# [id number] #: [id number] \MRx\ LOCATION: TRANSCRIBED: 11/30/24 13:46 MRI ABDOMEN W+WO CONTRAST 64738 COMPLETED:11/30/24 8:33 ASH [id number] {REASON-MRI ABD: MUCINOUS NEOPLAM OF PANCREAS PHYSICIAN: [...] to 16 mm, likely side-branch IPMN. HS:Y. R INSTALLER \ITLo\ \UNDo\ \UNDx\ \ITLx\ Reviewed and Electronically Signed by: Ramirez Lopez MD Signed Date: 11/30/24 13:46 Social History Type Status Start Date End Date Code Code Syst em Smoking History Current every day smoker [id number] SNOMED CT Smoking History Unknown if ever smoked [address] Sex Female Hospital Discharge Instructions Should you have any questions prior to discharge, please contact a member of your healthcare team. If you have left the hospital and have any questions, please contact your primary care physician. Reason For Referral No Data Found Plan of Treatment MRI Abdomen WWO Contrast (55656) 2024 Encounters Encounter Diagnosis Start Date Code Code Sys tem Neoplasm of unspecified behavior of digestive system 0 11/30/2024 SNOMED-CT Personal Care Team Section Performer Name Performer Role Active Date Inactive Mau Jurado Imaging Narrative Notes [facility] 11/30/2024 08:[address] [address] ---------NAME--------- NUMBER SEX AGE ADMIT DISC. XRAY# F/C TYPE DEPPER RIAZ MORRISSEY [id number] F 64 11/30/24 11/30/24 68145 HB5 O/P DATE OF : 1960 M/R# [id number] #: [id number] LOCATION: TRANSCRIBED: 11/30/24 8:53 FOOT 3V RIGHT [id number] COMPLETED:11/30/24 8:48 KEW 03962 {REASON-FT/TOE/HEEL: RT FOOT PAIN PHYSICIAN: EMILIE DOTSON C RADIOLOGY REPORT FOOT 3V RIGHT, INDICATION: RT FOOT PAIN TECHNICAL DATA: Frontal, oblique and lateral views were obtained of the right foot. COMPARISON: None FINDINGS: No fracture is identified. Joint spaces are maintained. Alignment is anatomic. The hallux sesamoids appear normal. Soft tissues are within normal limits. Heel spur. IMPRESSION: 1. No acute fracture or dislocation of the right foot. R INSTALLER Reviewed and Electronically Signed by: Jacklyn Crook MD Signed Date: 11/30/24 08:53 [facility] 11/30/2024 13:[address] [address] ---------NAME--------- NUMBER SEX AGE ADMIT DISC. XRAY# F/C TYPE DEPLANI RIAZ MORRISSEY [id number] F 64 11/30/24 11/30/24 83046 HB5 O/P DATE OF : 1960 M/R# [id number] PH#: [phone] LOCATION: TRANSCRIBED: 11/30/24 13:46 MRI ABDOMEN W+WO CONTRAST [id number] COMPLETED:11/30/24 8:33 ASH 82896 {REASON-MRI ABD: MUCINOUS NEOPLAM OF PANCREAS PHYSICIAN: [...] to 16 mm, likely side-branch IPMN. HS:Y. R INSTALLER Reviewed and Electronically Signed by: Ramirez Lopez MD Signed Date: 11/30/24 13:46
--- OUTSIDE RECORDS SUMMARY | 2025-01-12 18:55 | XMS_ITS ---
Author Organization Unknown Address [address] [place] [phone] Phone Care Team Providers Care Supervisor Fur Floor Worker Name Role Phone EMILIE GODDARD Attending Unavailable [...] Heri Barrientos M.D. KR: LIZ Report ID: [id number] Reading Location: [id number] Social History Type Status Start Date End Date Code Code Syst em Smoking History Current every day smoker 718695144 SNOMED CT Smoking History Unknown if ever smoked [address] Sex Female Hospital Discharge Instructions Should you have any questions prior to discharge, please contact a member of your healthcare team. If you have left the hospital and have any questions, please contact your primary care physician. Reason For Referral No Data Found Plan of Treatment MRI Abdomen WWO Contrast (81258) 2024 Encounters Encounter Diagnosis Start Date Code Code Sys tem Neoplasm of unspecified behavior of digestive system 0 10/01/2023 SNSiteMinder-CT Personal Care Team Section Performer Name Performer Role Active Date Inactive Da yash PHAN Imaging Narrative Notes
--- OUTSIDE RECORDS SUMMARY | 2025-01-12 18:55 | XMS_ITS ---
Author Organization Unknown Address [address] [place] [phone] Phone Care Team Providers Care Assessment Analyst Name Role Phone YULIA MATTHEW Attending Unavailable [...] Heri Pillai M.D. KH: PARTHA Report ID: [id number] Reading Location: [place] [address] Social History Type Status Start Date End Date Code Code Syst em Smoking History Current every day smoker 016847252 SNOMED CT Smoking History Unknown if ever smoked [address] Sex Female Hospital Discharge Instructions Should you have any questions prior to discharge, please contact a member of your healthcare team. If you have left the hospital and have any questions, please contact your primary care physician. Reason For Referral No Data Found Plan of Treatment MRI Abdomen WWO Contrast (67242) 2024 Encounters Encounter Diagnosis Start Date Code Code Sys tem Contusion of left knee, initial encounter 01/16/2024 SNOMED-CT Personal Care Team Section Performer Name Performer Role Active Date Inactive Da yash PHAN Imaging Narrative Notes
--- OUTSIDE RECORDS SUMMARY | 2025-01-12 18:56 | XMS_ITS | Encounter Summary ---
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
--- OUTSIDE RECORDS SUMMARY | 2025-01-12 18:56 | XMS_ITS | Clinical Summary ---
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
--- OUTSIDE RECORDS SUMMARY | 2025-01-12 18:56 | XMS_ITS ---
Author Organization Unknown Address [address] [place] [phone] Phone Care Team Providers Care Teaching Manager Name Role Phone EMILIE GODDARD Attending Unavailable Results US ECHO W/ COLOR - Completed : 08/05/2023 09:25 LOINC: See Scanned Image Attachment for Report Dictated By: Vickie Initials: BG Trans Date: 08/09/23 15:40 <<REPDIST>> Social History Type Status Start Date End Date Code Code Syst em Smoking History Current every day smoker 007518347 SNOMED CT Smoking History Unknown if ever smoked [address] Sex Female Hospital Discharge Instructions Should you have any questions prior to discharge, please contact a member of your healthcare team. If you have left the hospital and have any questions, please contact your primary care physician. Reason For Referral No Data Found Plan of Treatment MRI Abdomen WWO Contrast (98910) 2024 Encounters Encounter Diagnosis Start Date Code Code Sys tem Heart murmur 08/05/2023 [id number] SNOMED-CT Personal Care Team Section Performer Name Performer Role Active Date Inactive Mau Jurado Imaging Narrative Notes [facility] 08/09/2023 15:[address] [address] RADIOLOGY REPORT Patient Number: [id number] Patient Name: CODY MORRISSEY Type: O/P MR Number: [id number] : 1960 Age: 63 Sex: F Room #: Admit Date: 08/05/23 Discharge Date 08/05/23 Ordering Physician: EMILIE GODDARD Family Physician: EMILIE Reid Physician: X-Ray Number : [id number] US ECHO W/ COLOR [id number] COMPLETE:08/05/23 09:25 APC [id number] (REASON-ECHO COMPLTE: murmur See Scanned Image Attachment for Report Dictated By: Vickie Initials: Trans Date: 08/09/23 15:40 <<REPDIST>>
--- OUTSIDE RECORDS SUMMARY | 2025-01-12 18:56 | XMS_ITS ---
Author Organization Unknown Address [address] [place] [phone] Phone Care Team Providers Care Manager Flight Operations Name Role Phone MAURI CHAIDEZ Attending Unavailable EMILIE GODDARD Primary Unavailable Results TROPONIN LEVEL - Collect Shmuel e/Time: 03/02/2024 12:50 [facility] ID: [id number] [address] [place] [address], [phone] LOINC: 97407-8 Test Value Unit Reference Range Code Code System Flag TROPONIN < 0.012 ng/mL L=0.000 H=0.033 29933-6 LOINC CHEST 2V - Completed: 2023 13:09 [...] Wallace Perales M.D. AM: AM Report ID: [id number] Reading Location: [id number] Social History Type Status Start Date End Date Code Code Syst em Smoking History Current every day smoker [id number] SNOMED CT Smoking History Unknown if ever smoked [address] Sex Female Hospital Discharge Instructions Should you have any questions prior to discharge, please contact a member of your healthcare team. If you have left the hospital and have any questions, please contact your primary care physician. Reason For Referral No Data Found Plan of Treatment MRI Abdomen WWO Contrast (25502) 2024 Encounters Encounter Diagnosis Start Date Code Code Sys tem Chest pain 03/02/2024 [id number] SNOMED-CT Personal Care Team Section Performer Name Performer Role Active Date Inactive Mau Jurado Imaging Narrative Notes
--- OUTSIDE RECORDS SUMMARY | 2025-01-12 18:56 | XMS_ITS ---
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 Name Role Phone KRISTY ROQUE Attending Unavailable EMILIE GODDARD Primary Unavailable Results TROPONIN LEVEL - Collect Shmuel e/Time: 12/31/2024 22:52 [facility] [id number] [address] [place] [address], [phone] LOINC: 71242-7 Test Value Unit Reference Range Code Code System Flag TROPONIN < 0.012 ng/mL L=0.000 H=0.033 13862-0 LOINC URINALYSIS w/Microscopy/C&S if indicated - Collect Date/Time: 12/31/2024 21:49 [facility] [id number] [address] [place] [address], [phone] LOINC: 81178-2 Test Value Unit Reference Range Code Code System Flag UR SOURCE VOIDED 20668-0 LOINC COLOR LT YELLOW YELLOW 5778-6 LOINC CLARITY CLOUDY CLEAR 78047-3 LOINC SPEC GRAVITY 1.015 1.000-1.030 5811-5 LOINC PH 7.0 5.0 - 6.5 5803-2 LOINC LEUK EST NEGATIVE NEGATIVE 5799-2 LOINC NITRATE NEGATIVE NEGATIVE PROTEIN NEGATIVE NEGATIVE 5804-0 LOINC GLUCOSE NEGATIVE NEGATIVE 05137-3 LOINC KETONES NEGATIVE NEGATIVE 42126-0 LOINC UROBILINOGEN 1.0 0.2 - 1.0 5818-0 LOINC BILIRUBIN NEGATIVE NEGATIVE 22969-5 LOINC BLOOD NEGATIVE NEGATIVE 96143-5 LOINC WBC 0-2 0 - 2 07710-1 LOINC RBC 0-2 0 - 2 96157-0 LOINC SQ EPITHELIAL FEW RARE-FEW BACTERIA 2+ NONE SEEN 15479-9 LOINC A MUCUS FEW NONE SEEN 8247-9 LOINC YEAST NOT PRESENT NOT PRESENT 29791-2 LOINC TRICHOMONAS NOT PRESENT NOT PRESENT 12986-8 LOINC SPERMATOZOA NOT PRESENT NOT PRESENT 07507-6 LOINC CASTS PRESENT 32236-1 LOINC HYALINE 0-2/LPF NONE SEEN GRANULAR 0-2/LPF NONE SEEN WBC CAST NONE SEEN 5820-6 LOINC RBC CAST NONE SEEN 5807-3 LOINC WAXY CAST NONE SEEN 90682-5 LOINC CRYSTALS PRESENT 56913-5 LOINC AMORPH URATE NONE SEEN 59150-3 LOINC AMORPH PHOS 2+ NONE SEEN 69416-5 LOINC CA OXALATE NONE SEEN 51798-9 LOINC TRIPLE PHOS NONE SEEN 08013-4 LOINC URIC ACID NONE SEEN 5817-2 LOINC AMM BIURATE NONE SEEN 5766-1 LOINC CA CARBONATE NONE SEEN 77989-7 LOINC CA PHOSPHATE NONE SEEN 64190-9 LOINC CULTURE? NO 8251-1 LOINC DIAGNOSIS N/A CBC W/ DIFF - Collect Date/T sheryl: 12/31/2024 20:54 [facility] [id number] [address] [place], [place], [phone] LOINC: 73358-9 Test Value Unit Reference Range Code Code System Flag WBC 8.0 10^3uL L=4.8 H=10.8 RBC 4.55 10^6uL L=4.20 H=5.40 HEMOGLOBIN 13.3 g/dL L=12.0 H=16.0 718-7 LOINC HEMATOCRIT 40.9 VOL% L=37.0 H=47.0 4544-3 LOINC MCV 89.9 fL L=81.0 H=99.0 MCH 29.2 pg L=27.0 H=32.0 MCHC 32.5 g/dL L=32.0 H=36.0 PLATELETS 236 10^3uL L=100 H=400 73567-3 LOINC RDW 14.4 % L=11.7 H=15.5 %GRAN 66.9 % L=40.0 H=70.0 78390-9 LOINC %LYMPH 20.0 % L=20.0 H=45.0 736-9 LOINC %MONO 10.0 % L=2.0 H=10.0 49816-5 LOINC %EOS 2.4 % L=0.0 H=6.0 713-8 LOINC %BASO 0.6 % L=0.0 H=3.0 706-2 LOINC #NEUT 5.4 10^3uL L=1.9 H=7.6 19757-0 LOINC #LYMPH 1.6 10^3uL L=0.9 H=4.9 09341-6 LOINC #MONO 0.8 10^3uL L=0.1 H=0.9 01564-1 LOINC #EOS 0.2 10^3uL L=0.0 H=0.6 712-0 LOINC #BASO 0.05 10^3uL L=0.00 H=0.10 46189-3 LOINC #IM GRANS 0.0 10^3uL L=0.0 H=7.0 32152-3 LOINC %IM GRANS 0.1 % L=0.0 H=5.0 56131-7 LOINC %NRB 0.0 L=0.0 H=0.2 33356-5 LOINC #NRB 0.000 L=0.000 H=0.012 57244-1 LOINC MANUAL DIFF NOT INDICATED RBC MORPH NOT INDICATED COMPREHENSIVE METABOLIC PANE L - Collect Date/Time: 12/31/2024 20:54 [facility] [id number] [address] [place], [place], [phone] LOINC: 63901-1 Test Value Unit Reference Range Code Code [...] 2028-9 LOINC ANION GAP 10 L=10 H=20 00651-2 LOINC OSMOLALITY 290 mOs/kG L=280 H=296 73371-1 LOINC BUN/CREAT 27.1 3097-3 LOINC CALCIUM 9.0 mg/dL L=8.3 H=10.5 09907-4 LOINC AST 23 U/L L=15 H=46 1920-8 LOINC ALT 14 U/L L=9 H=72 1742-6 LOINC ALKALINE PHOS 111 U/L L=38 H=126 6768-6 LOINC TOTAL BILI 0.3 mg/dL L=0.2 H=1.3 1975-2 LOINC ALBUMIN 4.0 G/dL L=3.5 H=5.0 1751-7 LOINC TOTAL PROTEIN 6.9 g/L L=6.3 H=8.2 2885-2 LOINC A/G RATIO 1.4 67932-3 LOINC AGE 64 89876-9 LOINC eGFR NON-AFR 90 ml/min eGFR AFR AMER 109 ml/min D DIMER - Collect Date/Time: 12/31/2024 20:54 [facility] [id number] [address] [place] [address], [phone] LOINC: Test Value Unit Reference Range Code Code System Flag DDIMER 0.59 mg/L FEU L=0.00 H=0.50 H SED RATE - Collect Date/Time : 12/31/2024 20:54 [facility] [id number] [address] [place] [address], [phone] LOINC: Test Value Unit Reference Range Code Code System Flag SED RATE 7 mm/hr L=0 H=20 PROCALCITONIN - Collect Date /Time: 12/31/2024 20:54 [facility] ID: [id number] [address] [place] [address], [phone] LOINC: 33305-1 Test Value Unit Reference Range Code Code System Flag PROCALCITONIN 0.04 ng/mL L=0.00 H=0.08 LACTIC ACID - Collect Date/T sheryl: 12/31/2024 20:54 [facility] ID: [id number] [address] [place] [address], [phone] LOINC: 26782-0 Test Value Unit Reference Range Code Code System Flag LACTIC ACID 0.8 mmol/L L=0.7 H=2.6 31755-4 LOINC LIPASE - Collect Date/Time: 12/31/2024 20:54 [facility] ID: [id number] [address] [place] [address], [phone] LOINC: 3040-3 Test Value Unit Reference Range Code Code System Flag LIPASE 88 U/L L=23 H=300 3040-3 LOINC PRO BNP - Collect Date/Time: 12/31/2024 20:54 [facility] ID: [id number] [address] [place] [address], [phone] LOINC: 29769-0 Test Value Unit Reference Range Code Code System Flag Pro BNP2 56 pg/mL L=0 H=900 00804-9 LOINC TROPONIN LEVEL - Collect Shmuel e/Time: 12/31/2024 20:54 [facility] ID: [id number] [address] [place] [address], [phone] LOINC: 34493-2 Test Value Unit Reference Range Code Code System Flag TROPONIN < 0.012 ng/mL L=0.000 H=0.033 65044-1 LOINC CRP NON SPECIFIC - Collect D ate/Time: 12/31/2024 20:54 [facility] [id number] [address] [place] [address], [phone] LOINC: 1988-01 Test Value Unit Reference Range Code Code System Flag CRP-NON SPECIFIC 11.1 mg/L L=0.0 H=10.0 1988-01 LOINC H CHEST 2V - Completed: 2024 21:13 LOINC: \TM00\12PI\DRAo\BM09\ \MRHo\ [address] [address] ---------NAME--------- NUMBER SEX AGE ADMIT DISC. XRAY# F/C TYPE DEPPER RIAZ MORRISSEY [id number] F 64 12/31/24 46764 HB5 E.R. DATE OF : 1960 M/R# [id number] PH#: [phone] ED-30 [facility] LOCATION: TRANSCRIBED: 12/31/24 21:22 CHEST 2V 25006 COMPLETED:12/31/24 21:13 KEW 40317 Chest Pain PHYSICIAN: KRISTY ESQUIVEL R A [...] grossly intact. IMPRESSION: No acute cardiopulmonary abnormality. [employer] \ITLo\ \UNDo\ \UNDx\ \ITLx\ Reviewed and Electronically Signed by: WES NOE Signed Date: SIGNDATE CT ABD/PEL W/ CONTRAST - Com pleted: 12/31/2024 22:11 LOINC: 46214-6 \TM00\12PI\DRAo\BM09\ \MR[place]\ [place] [address] ---------NAME--------- NUMBER SEX AGE ADMIT DISC. XRAY# F/C TYPE DEPPER RIAZ MORRISSEY [id number] F 64 12/31/24 85394 HB5 E.R. DATE OF : 1960 M/R# [id number] #: [id number] ED-30 [facility] LOCATION: TRANSCRIBED: 12/31/24 23:39 CT ABD/PEL W/ CONTRAST [id number] COMPLETED:12/31/24 22:11 [facility] 00277 {REASON-CT ABD/PELVIS ABDOMINAL PAIN PHYSICIAN: KRISTY ESQUIVEL [...] aorta is patent and normal caliber containing cbqt-sj-rfmjyisz mixed atherosclerotic plaque. There is no central, [...] vessels are patent and normal caliber containing qhhu-wk-citscapn mixed atherosclerotic plaque. Bowel, Mesentery and Peritoneal [...] fluid collection, or free air. Normal appendix. [employer] \ITLo\ \UNDo\ \UNDx\ \ITLx\ Reviewed and Electronically Signed by: WES NOE Signed Date: SIGNDATE CT CHEST PE ANGIO W/ CONTRAS T - Completed: 12/31/2024 22:11 LOINC: 24526-0 \TM00\12PI\DRAo\BM09\ \MRHo\ [place] [address] ---------NAME--------- NUMBER SEX AGE ADMIT DISC. XRAY# F/C TYPE DEPPER RIAZ MORRISSEY [id number] F 64 12/31/24 69221 HB5 E.R. DATE OF : 1960 M/R# [id number] PH#: [phone] ED-30 \[facility]\ LOCATION: TRANSCRIBED: 12/31/24 23:39 CT CHEST PE ANGIO W/ CONTRAST 78580 COMPLETED:12/31/24 22:11 [facility] 00936 abdominal pain PHYSICIAN: KRISTY ESQUIVEL R A [...] aorta is patent and normal caliber containing exjz-na-ltqbgdxh mixed atherosclerotic plaque. There is no central, [...] vessels are patent and normal caliber containing undt-xx-edyuqter mixed atherosclerotic plaque. Bowel, Mesentery and Peritoneal [...] fluid collection, or free air. Normal appendix. [employer] \ITLo\ \UNDo\ \UNDx\ \ITLx\ Reviewed and Electronically Signed by: WES NOE Signed Date: SIGNDATE SHOULDER MIN 2V LEFT - Compl eted: 12/31/2024 21:13 LOINC: \TM00\12PI\DRAo\BM09\ \MRHo\ [address] [address] ---------NAME--------- NUMBER SEX AGE ADMIT DISC. XRAY# F/C TYPE DEPLANI MORRISSEY [id number] F 64 12/31/24 06256 HB5 E.R. DATE OF : 1960 M/R# [id number] #: [id number] ED-30 \[facility]\ LOCATION: TRANSCRIBED: 12/31/24 21:38 SHOULDER MIN 2V LEFT 27227 COMPLETED:12/31/24 21:13 KEW 77950 Chest Pain PHYSICIAN: KRISTY ESQUIVEL R A D I O L O G Y R E P O R T CLINICAL INDICATION: Chest Pain TECHNIQUE: 3 radiographic views of the left shoulder were obtained. Comparison: None FINDINGS/IMPRESSION: There is no evidence of acute fracture or dislocation. Narrowing of the left acromial humeral interval which is most likely due to chronic rotator cuff injury. Ewkd-xa-fbiswsmt degenerative changes of the left AC joint. The visualized lungs are clear. [employer] \ITLo\ \UNDo\ \UNDx\ \ITLx\ Reviewed and Electronically Signed by: Mony Limon DO Signed Date: 12/31/24 21:38 SHOULDER MIN 2V RIGHT - Comp leted: 12/31/2024 21:13 LOINC: \TM00\12PI\DRAo\BM09\ \MRHo\ [place] [id number] [place] [address] ---------NAME--------- NUMBER SEX AGE ADMIT DISC. XRAY# F/C TYPE DEPPER RIAZ MORRISSEY [id number] F 64 12/31/24 91652 HB5 E.R. DATE OF : 1960 M/R# [id number] #: [id number] ED-30 \[facility]\ LOCATION: TRANSCRIBED: 12/31/24 21:37 SHOULDER MIN 2V RIGHT 00072 COMPLETED:12/31/24 21:13 [place] [address] Chest Pain PHYSICIAN: KRISTY ESQUIVEL R A [...] AC joint. The visualized lungs are clear. [employer] \ITLo\ \UNDo\ \UNDx\ \ITLx\ Reviewed and Electronically Signed by: Mony Limon DO Signed Date: 12/31/24 21:37 Social History Type Status Start Date End Date Code Code Syst em Smoking History Current every day smoker 610541338 SNOMED CT Smoking History Unknown if ever smoked [address] Sex Female Hospital Discharge Instructions Should you have any questions prior to discharge, please contact a member of your healthcare team. If you have left the hospital and have any questions, please contact your primary care physician. Reason For Referral No Data Found Plan of Treatment MRI Abdomen WWO Contrast (50345) 2024 Encounters Encounter Diagnosis Start Date Code Code Sys tem Primary osteoarthritis, left shoulder 12/31/2024 SNOMED-CT Personal Care Team Section Performer Name Performer Role Active Date Inactive Mau Jurado Imaging Narrative Notes [facility] 12/31/2024 21:[address] [address] ---------NAME--------- NUMBER SEX AGE ADMIT DISC. XRAY# F/C TYPE DEPPER RIAZ MORRISSEY [id number] F 64 12/31/24 46255 HB5 E.R. DATE OF : 1960 M/R# [id number] #: [id number] ED-30 LOCATION: TRANSCRIBED: 12/31/24 21:38 SHOULDER MIN 2V LEFT 36475 COMPLETED:12/31/24 21:13 KEW 67987 Chest Pain PHYSICIAN: KRISTY ESQUIVEL RADIOLOGY REPORT CLINICAL INDICATION: Chest Pain TECHNIQUE: 3 radiographic views of the left shoulder were obtained. Comparison: None FINDINGS/IMPRESSION: There is no evidence of acute fracture or dislocation. Narrowing of the left acromial humeral interval which is most likely due to chronic rotator cuff injury. Uefp-ga-lbqolafm degenerative changes of the left AC joint. The visualized lungs are clear. [employer] Reviewed and Electronically Signed by: Mony Limon DO Signed Date: 12/31/24 21:38 [facility] 12/31/2024 21:[address] [address] ---------NAME--------- NUMBER SEX AGE ADMIT DISC. XRAY# F/C TYPE CODY MORRISSEY [id number] F 64 12/31/24 99335 HB5 E.R. DATE OF : 1960 M/R# [id number] #: [id number] ED-30 LOCATION: TRANSCRIBED: 12/31/24 21:22 CHEST 2V 44844 COMPLETED:12/31/24 21:13 KEW 62135 Chest Pain PHYSICIAN: KRISTY ESQUIVEL RADIOLOGY REPORT [...] grossly intact. IMPRESSION: No acute cardiopulmonary abnormality. [employer] Reviewed and Electronically Signed by: DCTNAMAna Laura NOE Signed Date: SIGNDATE [facility] 12/31/2024 23:[address] [address] ---------NAME--------- NUMBER SEX AGE ADMIT DISC. XRAY# F/C TYPE CODY MORRISSEY [id number] F 64 12/31/24 76316 HB5 E.R. DATE OF : 1960 M/R# [id number] #: [id number] ED-30 LOCATION: TRANSCRIBED: 12/31/24 23:39 CT CHEST PE ANGIO W/ CONTRAST 50015 COMPLETED:12/31/24 22:11 KEW 67054 abdominal pain PHYSICIAN: KRISTY ESQUIVEL RADIOLOGY REPORT [...] aorta is patent and normal caliber containing sozd-bi-jnfrsucj mixed atherosclerotic plaque. There is no central, [...] vessels are patent and normal caliber containing ldxw-wi-uhunrtsi mixed atherosclerotic plaque. Bowel, Mesentery and Peritoneal [...] fluid collection, or free air. Normal appendix. [employer] Reviewed and Electronically Signed by: DCTNAMAna Laura NOE Signed Date: SIGNDATE [facility] 12/31/2024 21:[address] [address] ---------NAME--------- NUMBER SEX AGE ADMIT DISC. XRAY# F/C TYPE DEPPER RIAZ MORRISSEY [id number] F 64 12/31/24 72465 HB5 E.R. DATE OF : 1960 M/R# [id number] #: [id number] ED-30 LOCATION: TRANSCRIBED: 12/31/24 21:37 SHOULDER MIN 2V RIGHT 09876 COMPLETED:12/31/24 21:13 KEW 62934 Chest Pain PHYSICIAN: KRISTY ESQUIVEL RADIOLOGY REPORT CLINICAL INDICATION: Chest Pain TECHNIQUE: 3 radiographic views of the right shoulder were obtained. Comparison: None FINDINGS/IMPRESSION: There is no evidence of acute fracture or dislocation. Mild narrowing of the acromial humeral interval which may be seen with chronic rotator cuff injury. Moderate degenerative changes of the right AC joint. The visualized lungs are clear. [employer] Reviewed and Electronically Signed by: Mony Limon DO Signed Date: 12/31/24 21:37 [facility] 12/31/2024 23:[address] [address] ---------NAME--------- NUMBER SEX AGE ADMIT DISC. XRAY# F/C TYPE DEPPER RIAZ MORRISSEY [id number] F 64 12/31/24 69558 HB5 E.R. DATE OF : 1960 M/R# [id number] #: [id number] ED-30 LOCATION: TRANSCRIBED: 12/31/24 23:39 CT ABD/PEL W/ CONTRAST 38065 COMPLETED:12/31/24 22:11 KEW 92386 {REASON-CT ABD/PELVIS ABDOMINAL PAIN PHYSICIAN: KRISTY ESQUIVEL [...] aorta is patent and normal caliber containing kkcd-vk-fnkjuvdq mixed atherosclerotic plaque. There is no central, [...] vessels are patent and normal caliber containing cxrw-id-bdeeejtg mixed atherosclerotic plaque. Bowel, Mesentery and Peritoneal [...] fluid collection, or free air. Normal appendix. [employer] Reviewed and Electronically Signed by: JANELLNAMAna Laura NOE Signed Date: SIGNDATE
== END 2025-01-12 19:07 | disposition home or self-care (01) ==
PROVIDERS: Emergency Provider Emergency Medicine; PCP Internal Medicine
DX: L03.114 Cellulitis of left upper limb (principal); M10.9 Gout, unspecified
CPT/HCPCS: 99283; A9270

== ENCOUNTER 2025-05-14 20:18 | Emergency (ER) | payer OTHER, SELFPAY ==
--- NOTE | ~2025-05-14 | XR_ITS ---
EXAMINATION: XR chest 1V portable 05/14/2025 20:37 INDICATION: Shortness of breath. COPD. PROCEDURE: AP portable chest COMPARISON: Comparison to multiple prior studies sequentially, with oldest reviewed study dated 11/12/2016. FINDINGS: The lungs are clear. The cardiomediastinal silhouette is within normal limits. There are no pleural effusions. There is no pneumothorax suspected. IMPRESSION: 1: NO ACUTE CARDIOPULMONARY DISEASE. Reviewed, dictated and finalized at location O.
[2025-05-14 20:18] VITALS: PULSE 80
[2025-05-14 20:20] VITALS: BP 165/104; PULSE 81; RESP 16; TEMP 36.9; O2SAT 93
--- OUTSIDE RECORDS SUMMARY | 2025-05-14 20:20 | XMS_ITS | Clinical Summary ---
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
--- OUTSIDE RECORDS SUMMARY | 2025-05-14 20:20 | XMS_ITS | Encounter Summary ---
Author Organization 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
--- OUTSIDE RECORDS SUMMARY | 2025-05-14 20:20 | XMS_ITS | Patient Health Record ---
Author Organization [facility] [facility] Address [address] [place] [address] Care Team Providers Care Production Cost Estimator Name Role Phone LES GOOD Unavailable [phone] Farrah Monroy Unavailable Unavailable Reason For Referral No Information Medications Medication SIG (Take, Route, Frequency, Duration) Notes Start Date End Date Status Atrovent HFA ; Duration: -2 *Pick strength-f orm from [facility] for eRX* 12/10/2019 Active FLUTICASONE PROPIONATE (BULK) ; Duration: -2 *Reorder from [facility] for eRx and Interaction Alerts* 12/10/2019 Active Levothyroxine ; Duration: -2 *Reorder from [facility] for eRx and Interaction Alerts* 12/10/2019 Active Lisinopril ; Duration: -2 *Pick strength-f orm from [facility] for eRX* 12/10/2019 Active Albuterol Sulfate ; Duration: -2 *Pick strength -form from [facility] for eRX* 12/10/2019 Active Problems Problem Type SNOMED Code ICD Code Onset Dates Problem Status W/U Status Risk Notes Problem Tinea unguium (741632996) Tinea unguium (B35.1) 2 Active confirmed Problem Disorder of thyroid gland (07867313) Disorder of thyroid, unspecified (E07.9) 9 Active confirmed Problem Peripheral vascular disease (176054763) Other specified peripheral vascular diseases (I73.89) 9 Active confirmed Problem Embolism from thrombosis of vein of lower extremity (040730872) Acute embolism and thrombosis of unspecified deep veins of unspecified lower extremity (I82.409) 9 Active confirmed Problem Chronic obstructive pulmonary disease (78904712) Chronic obstructive pulmonary disease, unspecified (J44.9) 9 Active confirmed Problem Inflammatory liver disease (538675711) Inflammatory liver disease, unspecified (K75.9) 9 Active confirmed Problem FH: Epilepsy (141418800) Family history of epilepsy and other diseases of the nervous system (Z82.0) 9 Active confirmed Problem Family history of ischemic heart disease (124731761) Family history of ischemic heart disease and other diseases of the circulatory system (Z82.49) 9 Active confirmed Problem Family history of kidney disease (479735667) Family history of disorders of kidney and ureter (Z84.1) 9 Active confirmed Plan Of Treatment No Information Insurance Providers Payer Name Payer Address Payer Phone Subscriber Number Group Number Insured Name Patient Relationship to Insured Coverage Start Date Coverage End Date [facility] [address] [place] [address] [id number] RIAZ ROSS Self - patient is the insured [address] [id number] RIAZ ROSS Self - patient is the insured 8
[2025-05-14 20:40] LABS: Hematocrit 43.9 % (35.0-49.0); Hemoglobin 14.2 g/dL (12.0-15.0); Immature Granulocyte Percent A 0.2 % (0.0-0.0); Lymphocytes Absolute Auto 1.35 K/mm3 (1.10-4.50); Mean Corpuscular HGB Conc 32.3 g/dL (32-36); Mean Corpuscular Hemoglobin 28.9 pg (27.0-31.0); Mean Corpuscular Volume 89.4 fL (78.0-102.0); Nucleated Red Blood Cells Absolute Auto 0.00 K/mm3 (0.00-0.00); Nucleated Red Blood Cells Perc 0.0 % (0-0.0); Platelet Count Result 241 K/mm3 (150-420); Red Blood Count 4.91 M/mm3 (4.20-5.40); White Blood Count 5.8 K/mm3 (4.8-10.8)
[2025-05-14] MEDS: ALBUTEROL SULFATE NEB 2.5 MG/3 ML INH 5 MG INHALATION (20:42)
[2025-05-14] MEDS: IPRATROPIUM BR 0.02% INH SOLN 0.5 MG/2.5 ML VIAL INHALATION (20:42)
[2025-05-14 20:51] LABS: Alanine Aminotransferase 13 U/L (6-35); Albumin Level 4.5 g/dL (3.5-5.1); Alkaline Phosphatase 96 U/L (38-126); Anion Gap 9 mmol/L (4-12); Aspartate Amino Transferase 24 U/L (14-36); Bilirubin,Total 0.5 mg/dL (0.2-1.3); Blood Urea Nitrogen 17 mg/dL (7-17); Calcium 9.8 mg/dL (8.4-10.2); Carbon Dioxide 27 mmol/L (22-30); Chloride 105 mmol/L (98-107); Estimated CRCL calculation 53 ml/min; Estimated Glomerular Filt Rate > 60; Glucose 96 mg/dL (65-110); Osmolality Calculated 293 mOsm/kg (285-295); Potassium 4.0 mmol/L (3.4-5.0); Sodium 141 mmol/L (137-145); Total Protein 7.4 g/dL (6.3-8.2)
--- OUTSIDE RECORDS SUMMARY | 2025-05-14 20:57 | XMS_ITS | Clinical Summary ---
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
--- NOTE | 2025-05-14 21:38 | ED.SOB ---
HPI - SOB/Dyspnea General Chief Complaint: Shortness of Breath/Dyspnea Stated Complaint: shortness of breath Time Seen by Provider: 05/14/25 20:19 Source: patient Mode of arrival: ambulatory Limitations: no limitations History of Present Illness HPI Narrative: 65 yr with a history of COPD here with a complaints of SOB for past 1 wk , been on antibiotic , Denies any fever , cough is nonproductive. Denies any CP . MD elicited complaint: shortness of breath and cough Pertinent past history: COPD Onset (ago): week(s) (1) Timing: constant Severity: moderate Exacerbating factors: nothing Relieving factors: bronchodilators Known history of: COPD Associated symptoms: denies other symptoms Related Data Home Medications ?Medication ?Instructions ?Recorded ?Confirmed ?Last Taken ?Type albuterol sulfate 90 mcg/actuation 90 mcg inhalation PRN 10/30/21 11/24/23 Unknown History aerosol inhaler levothyroxine 200 mcg tablet 200 mcg PO DAILY 10/30/21 11/24/23 Unknown History Allergies Allergy/AdvReac Type Severity Reaction Status Date / Time Cephalosporins AdvReac Intermediate Nausea and Verified 05/14/25 20:51 Vomiting erythromycin base AdvReac Mild Nausea Verified 05/14/25 20:51 ibuprofen (From Motrin) AdvReac Mild Nausea Verified 05/14/25 20:51 lamotrigine AdvReac Mild Nausea Verified 05/14/25 20:51 methylprednisolone AdvReac Mild Nausea Verified 05/14/25 20:51 nitrofurantoin (From AdvReac Mild Nausea Verified 05/14/25 20:51 Macrobid) pseudoephedrine AdvReac Mild Nausea Verified 05/14/25 20:51 Quinolones AdvReac Mild Nausea Verified 05/14/25 20:51 Sulfa (Sulfonamide AdvReac Mild Nausea Verified 05/14/25 20:51 Antibiotics) Penicillins AdvReac Nausea Verified 05/14/25 20:51 Review of Systems Review of Systems: All systems reviewed & are unremarkable except as noted in HPI and below Constitutional: Constitutional: Reports no additional constitutional complaints Eyes: Eyes: Reports no additional eye complaints ENT: Reports system reviewed and no additional complaints, except as documented Cardiovascular: Cardiovascular: Reports no additional cardiovascular complaints Respiratory: Respiratory: Reports as per HPI Gastrointestinal: Gastrointestinal: Reports no additional gastrointestinal complaints Musculoskeletal: Musculoskeletal: Reports no additional musculoskeletal complaints Integumentary/Breasts: Skin/Breast: Reports system reviewed and no additional complaints, except as docu [facility] Past Medical History Medical History Patient denies medical problems Exam Narrative: GENERAL: Well-appearing, well-nourished, and in no acute distress. HEAD: Normocephalic, atraumatic. EYES: PERRLA and EOMI. ENT: Nares clear, no rhinorrhea or epistaxis. Mucous membranes moist. NECK: Supple. CHEST: No respiratory distress. Bilateral wheeze HEART: Regular rate and rhythm. No murmur heard. Normal peripheral pulses. EXTREMITIES: Normal range of motion. No edema. SKIN: Warm, dry, no rash. NEURO: No focal deficits. Alert and oriented x3. PSYCH: Normal mood and affect. Course Course Emergency Course: pt feeling better after neb treatment , advised to continue with inhalers , take steroids as prescribed. Vital Signs Vital signs: Vital Signs Pulse Rate 80 05/14/25 20:18 Oxygen Delivery Room Air 05/14/25 20:18 Temperature 36.9 C 05/14/25 20:20 Pulse Rate 81 05/14/25 20:20 Respiratory Rate 16 05/14/25 20:20 Blood Pressure 165/104 H 05/14/25 20:20 Pulse Oximetry 93 05/14/25 20:20 Oxygen Delivery Room Air 05/14/25 20:20 MDM - SOB/Dyspnea Differential Diagnosis Differential diagnosis: Likely acute exacerbation of chronic obstructive airways disease and community acquired pneumonia Medical Records Attestation: I reviewed the patient's medical records. Lab Data Attestation: I reviewed the patient's lab results. 05/14/25 20:34 05/14/25 20:34 Labs: Lab Results 05/14/25 Range/Units 20:34 WBC 5.8 (4.8-10.8) K/mm3 RBC 4.91 (4.20-5.40) M/mm3 Hgb 14.2 (12.0-15.0) g/dL Hct 43.9 (35.0-49.0) % MCV 89.4 (78.0-102.0) fL MCH 28.9 (27.0-31.0) pg MCHC 32.3 (32-36) g/dL RDW 14.4 (11.6-14.4) % Plt Count 241 (150-420) K/mm3 MPV 9.0 L (9.2-11.8) fl Immature Gran % (Auto) 0.2 H (0.0-0.0) % Neut % (Auto) 63.1 (50.0-70.0) % Lymph % (Auto) 23.2 (18.0-42.0) % [place] % (Auto) 11.4 H (2.0-11.0) % Eos % (Auto) 1.4 (1.0-6.0) % Baso % (Auto) 0.7 (0.0-1.0) % Lymph # (Auto) 1.35 (1.10-4.50) K/mm3 [place] # (Auto) 0.66 (0.10-0.90) K/mm3 Eos # (Auto) 0.08 (0.02-0.50) K/mm3 Baso # (Auto) 0.04 (0.00-0.10) K/mm3 Abs Immat Gran (auto) 0.01 H (0.00-0.00) K/mm3 Absolute Neuts (auto) 3.67 (1.70-7.20) K/mm3 Absolute Nucleated RBC 0.00 (0.00-0.00) K/mm3 Nucleated RBC % 0.0 (0-0.0) % Sodium 141 (137-145) mmol/L Potassium 4.0 (3.4-5.0) mmol/L Chloride 105 (98-107) mmol/L Carbon Dioxide 27 (22-30) mmol/L Anion Gap 9 (4-12) mmol/L BUN 17 (7-17) mg/dL Creatinine 0.91 (0.7-1.0) mg/dL Estim Creat Clear Calc 53 ml/min Estimated GFR > 60 (59 - ) Glucose 96 (65-110) mg/dL Calculated Osmolality 293 (285-295) mOsm/kg Calcium 9.8 (8.4-10.2) mg/dL Total Bilirubin 0.5 (0.2-1.3) mg/dL AST 24 (14-36) U/L ALT 13 (6-35) U/L Alkaline Phosphatase 96 (38-126) U/L Total Protein 7.4 (6.3-8.2) g/dL Albumin 4.5 (3.5-5.1) g/dL Imaging Data My impression: copd Radiologist's impression: ITS Impressions Chest X-Ray 05/14/25 20:42 IMPRESSION: 1: NO ACUTE CARDIOPULMONARY DISEASE. Discharge Plan Discharge Clinical Impression: COPD exacerbation Patient Disposition: Home Condition: Stable Instructions: COPD (Chronic Obstructive Pulmonary Disease) (ED) Additional Instructions: continue home medication , Quit smoking , take steroids as prescribed. Patient Language: German Prescriptions: New prednisone 20 mg tablet 20 mg PO BID Qty: 14 0RF No Action levothyroxine 200 mcg tablet 200 mcg PO DAILY albuterol sulfate 90 mcg/actuation HFA aerosol inhaler 90 mcg INHALATION PRN colchicine 0.6 mg capsule 0.6 mg PO DAILY 7 Days Qty: 7 0RF clindamycin HCl [Cleocin HCl] 300 mg capsule 300 mg PO TID 7 Days Qty: 21 0RF meclizine 25 mg tablet 25 mg PO BID PRN (Reason: dizziness) Qty: 20 0RF ondansetron 4 mg tablet,disintegrating 4 mg PO Q8H PRN (Reason: nausea and vomiting) Qty: 20 0RF Follow-up/Referrals: Nicholas,Farrah Puente MD [Primary Care Provider, Medical] Time of Disposition: 21:40
== END 2025-05-14 22:00 | disposition home or self-care (01) ==
PROVIDERS: Emergency Provider Family Medicine; PCP Internal Medicine
DX: J44.1 Chronic obstructive pulmonary disease with (acute) exacerbation (principal)
CPT/HCPCS: 36415; 71045; 80053; 85025; 94640; 96374; 99284; J2919